=== PATIENT | male | born 1945 | race Caucasian/White ===

== ENCOUNTER 2017-12-04 15:12 | Emergency (ER) | payer OTHER ==
[~2017-12-04] VITALS: Ht 182.9 cm; Wt 77.1 kg
[~2017-12-04 15:12] MED LIST: ASCO500 PO; ATOR10 PO; Arthritis Pai42.5 GM TOP; B-1100 MG PO; BIOTENE1000 ML; BIOTENE1000 ML PO; BISA5EC PO; CAPSAICIN TOP; CHOL10002; CHOL10002 PO; CIPR500 PO; CYAN1000 PO; DEXT5ER PO; DULO30 PO; DULO60; DULO60 PO; FINA5 PO; FISH1000 PO; Fish Oil300 MG PO; GLIP5 PO; Glucose4 GM PO; HYDACE10B PO; IBUP400 PO; LISI20 PO; LORA1 PO; LORA2 PO; METF500C PO; METO25 PO; METO25ER PO; MORP15ER PO; MORP60ER PO; MULVITMIND PO; OLAN10 PO; PERIDEX15 ML PO; PREG50 PO; PYRI100 PO; SILD50TA; SILD50TA PO; SODIUM FLUORIDE; TAMS.4ER PO; TESTOSTERO200 MG/1 M IM; Viagra100 MG PO; XARELTO15 MG PO; Zyprexa10 MG PO
[2017-12-04 15:52] LABS: BASOPHILS ABSOLUTE AUTO 0.03 K/mm3 (0.00-0.23); BASOPHILS PERCENT AUTO 0 % (0-2); EOSINOPHILS ABSOLUTE AUTO 0.11 K/mm3 (0.00-0.68); EOSINOPHILS PERCENT AUTO 1 % (0-6); Hematocrit 39.2 % (37.0-53.0); Hemoglobin 13.5 g/dL (13.5-17.5); IMMATURE GRAN ABSOLUTE AUTO 0.02 K/mm3 (0.00-0.10); IMMATURE GRAN PERCENT AUTO 0 % (0-1); LYMPHOCYTES PERCENT AUTO 21 % (21-46); MONOCYTES PERCENT AUTO 9 % (4-13); Mean Corpuscular HGB 33.8 pg (26.0-34.0); Mean Corpuscular HGB Conc 34.4 g/dL (31.5-36.5); Mean Corpuscular Volume 98 fL (80-100); Mean Platelet Volume 11.1 fL (9.1-12.4); NEUTROPHILS ABSOLUTE AUTO 6.66 K/mm3 (1.96-9.15); NEUTROPHILS PERCENT AUTO 68 % (41-73); Platelet Count 223 K/mm3 (150-400); RDW Coefficient Variation 13.7 % (11.7-14.2); RDW Standard Deviation 49.3 fL (35.1-46.3); White Blood Cell Count 9.82 K/mm3 (4.00-11.30)
[2017-12-04 16:12] LABS: Alanine Aminotransfer (ALT/SGP 38 U/L (12-78); Albumin, Blood 3.3 g/dL (3.4-5.0); Albumin/Globulin Ratio 0.9 (0.8-1.8); Alk Phos 50 U/L (50-136); Anion Gap 10 mmol/L (6-16); Aspartate Aminotrans (AST/SGOT 24 U/L (12-37); Bilirubin, Total 0.4 mg/dL (0.1-1.0); Blood Urea Nitrogen 11 mg/dL (8-24); Bun/Creatinine Ratio 21.1 (12.0-20.0); CO2, Blood 22 mmol/L (21-32); Calcium, Blood 8.9 mg/dL (8.5-10.1); Chloride, Blood 110 mmol/L (98-108); Creatinine, Blood 0.52 mg/dL (0.60-1.20); Globulin, Blood 3.5 g/dL (2.2-4.0); Glomerular Filtration Rate >60 (60-); Glucose, Blood 149 mg/dL (70-99); Potassium, Blood 3.6 mmol/L (3.5-5.5); Sodium, Blood 142 mmol/L (136-145); Total Protein, Blood 6.8 g/dL (6.4-8.2); Troponin I <0.015 ng/mL (0.000-0.040)
== END 2017-12-04 19:22 | disposition home or self-care (01) ==
LOC: ER 15:12
PROVIDERS: Emergency Medicine
DX: S09.90XA Unspecified injury of head, initial encounter (principal); I10 Essential (primary) hypertension; E11.40 Type 2 diabetes mellitus with diabetic neuropathy, unspecified; F32.9 Major depressive disorder, single episode, unspecified; F41.9 Anxiety disorder, unspecified; F17.200 Nicotine dependence, unspecified, uncomplicated; Z88.8 Allergy status to other drugs, medicaments and biological substances; Z79.899 Other long term (current) drug therapy; Z79.84 Long term (current) use of oral hypoglycemic drugs; Z86.19 Personal history of other infectious and parasitic diseases; W18.30XA Fall on same level, unspecified, initial encounter
CPT/HCPCS: 70450; 72125; 80053; 81000; 82272; 84484; 85025; 93005; 93010; 99284; L0160

== ENCOUNTER 2020-01-31 21:02 | Observation (INO) | payer OTHER ==
[~2020-01-31] VITALS: Ht 182.9 cm; Wt 90.7 kg
[2020-01-31 22:00] LABS: U Amphetamine Screen Not Detected; U Barbituate Screen Not Detected; U Benzodiazapine Screen Not Detected; U Buprenorphine Screen Not Detected; U Cannabinoids Screen Not Detected; U Cocaine Screen Not Detected; U Methadone Screen Not Detected; U Methamphetamine Screen Not Detected; U Opiates Screen Not Detected; U Oxycodone Screen Not Detected; U Phencyclidine Screen Not Detected; U Propoxyphene Screen Not Detected
[2020-01-31 22:04] LABS: BASOPHILS ABSOLUTE AUTO 0.07 K/mm3 (0.00-0.23); BASOPHILS PERCENT AUTO 1 % (0-2); EOSINOPHILS ABSOLUTE AUTO 0.28 K/mm3 (0.00-0.68); EOSINOPHILS PERCENT AUTO 3 % (0-6); Hematocrit 43.6 % (37.0-53.0); Hemoglobin 14.5 g/dL (13.5-17.5); IMMATURE GRAN ABSOLUTE AUTO 0.03 K/mm3 (0.00-0.10); IMMATURE GRAN PERCENT AUTO 0 % (0-1); LYMPHOCYTES ABSOLUTE AUTO 3.58 K/mm3 (0.84-5.20); LYMPHOCYTES PERCENT AUTO 36 % (21-46); MONOCYTES ABSOLUTE AUTO 0.81 K/mm3 (0.16-1.47); MONOCYTES PERCENT AUTO 8 % (4-13); Mean Corpuscular HGB 32.7 pg (26.0-34.0); Mean Corpuscular HGB Conc 33.3 g/dL (31.5-36.5); Mean Corpuscular Volume 98 fL (80-100); Mean Platelet Volume 11.2 fL (9.1-12.4); NEUTROPHILS ABSOLUTE AUTO 5.09 K/mm3 (1.96-9.15); NEUTROPHILS PERCENT AUTO 52 % (41-73); Platelet Count 170 K/mm3 (150-400); RDW Coefficient Variation 13.9 % (11.7-14.2); RDW Standard Deviation 50.8 fL (35.1-46.3); Red Blood Cell Count 4.43 M/mm3 (4.30-5.90); White Blood Cell Count 9.86 K/mm3 (4.00-11.30)
[2020-01-31 22:19] LABS: Prothrombin Time Results 10.7 Sec (9.7-11.5)
[2020-01-31 22:29] LABS: Alanine Aminotransfer (ALT/SGP 86 U/L (12-78); Albumin, Blood 3.4 g/dL (3.4-5.0); Albumin/Globulin Ratio 0.9 (0.8-1.8); Alk Phos 57 U/L (50-136); Anion Gap 4 mmol/L (6-16); Aspartate Aminotrans (AST/SGOT 49 U/L (12-37); Bilirubin, Total 0.3 mg/dL (0.1-1.0); Blood Urea Nitrogen 10 mg/dL (8-24); Bun/Creatinine Ratio 11.3 (12.0-20.0); CO2, Blood 30 mmol/L (21-32); Calcium, Blood 8.8 mg/dL (8.5-10.1); Chloride, Blood 111 mmol/L (98-108); Creatinine, Blood 0.89 mg/dL (0.60-1.20); Ethanol (Alcohol), Blood, Med <3 mg/dL; Globulin, Blood 3.8 g/dL (2.2-4.0); Glomerular Filtration Rate >60 (60-); Glucose, Blood 81 mg/dL (70-99); Potassium, Blood 4.1 mmol/L (3.5-5.5); Sodium, Blood 145 mmol/L (136-145); Total Protein, Blood 7.2 g/dL (6.4-8.2)
[2020-01-31] MEDS ORDERED: NARCAN4 MG (23:36)
== END 2020-02-01 00:01 | disposition home or self-care (01) ==
LOC: ER 21:02 → ERHOLD 21:03
PROVIDERS: Emergency Medicine; ADMIT Internal Medicine
DX: G92 Toxic encephalopathy (principal); G89.4 Chronic pain syndrome; E86.0 Dehydration; R74.8 Abnormal levels of other serum enzymes; E11.40 Type 2 diabetes mellitus with diabetic neuropathy, unspecified; F32.9 Major depressive disorder, single episode, unspecified; T40.2X1A Poisoning by other opioids, accidental (unintentional), initial encounter; F43.10 Post-traumatic stress disorder, unspecified; G47.30 Sleep apnea, unspecified; E78.5 Hyperlipidemia, unspecified; D75.1 Secondary polycythemia; Z79.899 Other long term (current) drug therapy; Z86.69 Personal history of other diseases of the nervous system and sense organs; Z86.19 Personal history of other infectious and parasitic diseases; Z79.84 Long term (current) use of oral hypoglycemic drugs; Z88.8 Allergy status to other drugs, medicaments and biological substances; F17.210 Nicotine dependence, cigarettes, uncomplicated
CPT/HCPCS: 70450; 80053; 85025; 85610; 85730; 93005; 93010; 96374; 99285-25; A9270-GY; G0378; G0480; J2310; J7030

== ENCOUNTER 2020-12-22 14:12 | Emergency (ER) | payer OTHER ==
[~2020-12-22] VITALS: Ht 182.9 cm; Wt 90.7 kg
[~2020-12-22 14:12] MED LIST changes: +NARCAN4 MG
[2020-12-22 14:54] LABS: BASOPHILS ABSOLUTE AUTO 0.07 K/mm3 (0.00-0.23); BASOPHILS PERCENT AUTO 1 % (0-2); EOSINOPHILS PERCENT AUTO 2 % (0-6); Hematocrit 44.8 % (37.0-53.0); Hemoglobin 14.3 g/dL (13.5-17.5); IMMATURE GRAN ABSOLUTE AUTO 0.02 K/mm3 (0.00-0.10); IMMATURE GRAN PERCENT AUTO 0 % (0-1); LYMPHOCYTES ABSOLUTE AUTO 1.93 K/mm3 (0.84-5.20); LYMPHOCYTES PERCENT AUTO 23 % (21-46); MONOCYTES ABSOLUTE AUTO 1.08 K/mm3 (0.16-1.47); MONOCYTES PERCENT AUTO 13 % (4-13); Mean Corpuscular HGB 31.5 pg (26.0-34.0); Mean Corpuscular HGB Conc 31.9 g/dL (31.5-36.5); Mean Corpuscular Volume 99 fL (80-100); Mean Platelet Volume 11.8 fL (9.1-12.4); NEUTROPHILS ABSOLUTE AUTO 5.02 K/mm3 (1.96-9.15); NEUTROPHILS PERCENT AUTO 60 % (41-73); Platelet Count 168 K/mm3 (150-400); RDW Coefficient Variation 14.6 % (11.7-14.2); RDW Standard Deviation 53.2 fL (35.1-46.3); Red Blood Cell Count 4.54 M/mm3 (4.30-5.90); White Blood Cell Count 8.32 K/mm3 (4.00-11.30)
[2020-12-22 15:07] LABS: International Normalized Ratio 1.01; Prothrombin Time Results 10.8 Sec (9.7-11.5)
[2020-12-22 15:24] LABS: Alanine Aminotransfer (ALT/SGP 38 U/L (12-78); Albumin, Blood 3.5 g/dL (3.4-5.0); Albumin/Globulin Ratio 0.9 (0.8-1.8); Alk Phos 70 U/L (50-136); Anion Gap 5 mmol/L (6-16); Aspartate Aminotrans (AST/SGOT 18 U/L (12-37); Bilirubin, Total 0.5 mg/dL (0.1-1.0); Blood Urea Nitrogen 6 mg/dL (8-24); Bun/Creatinine Ratio 8.3 (12.0-20.0); CO2, Blood 28 mmol/L (21-32); Calcium, Blood 8.7 mg/dL (8.5-10.1); Chloride, Blood 109 mmol/L (98-108); Creatinine, Blood 0.72 mg/dL (0.60-1.20); Ethanol (Alcohol), Blood, Med <3 mg/dL; Globulin, Blood 4.1 g/dL (2.2-4.0); Glomerular Filtration Rate >60 (60-); Glucose, Blood 151 mg/dL (70-99); Potassium, Blood 3.6 mmol/L (3.5-5.5); Sodium, Blood 142 mmol/L (136-145); Total Protein, Blood 7.6 g/dL (6.4-8.2)
[2020-12-22] MEDS ORDERED: Vitamin B-121000 MCG PO (15:34)
[2020-12-22] MEDS ORDERED: BUSP10 PO (15:34)
[2020-12-22] MEDS ORDERED: FISH OIL 1,2001 EAC7 PO (15:34)
[2020-12-22] MEDS ORDERED: ACET325 PO (15:34)
[2020-12-22] MEDS ORDERED: ATOR20 PO (15:34)
[2020-12-22] MEDS ORDERED: METO25 PO (15:35)
[2020-12-22] MEDS ORDERED: MELA3 PO (15:35)
[2020-12-22] MEDS ORDERED: GLIP5 PO (15:35)
[2020-12-22] MEDS ORDERED: PREG25 PO (15:36)
[2020-12-22] MEDS ORDERED: OLAN5 PO (15:36)
[2020-12-22] MEDS ORDERED: SILD50TA PO (15:37)
[2020-12-22] MEDS ORDERED: TAMS.4ER PO (15:37)
[2020-12-22 17:03] LABS: Influenza A, PCR Negative (NEGATIVE); Influenza B, PCR Negative (NEGATIVE); Resp Syncytial Virus, PCR Negative (NEGATIVE); SARS-Cov-2 (COVID-19) PCR, MMC Negative (NEGATIVE)
== END 2020-12-22 17:49 | disposition home or self-care (01) ==
LOC: ER 14:12
PROVIDERS: Emergency Medicine
DX: R41.0 Disorientation, unspecified (principal); Z79.84 Long term (current) use of oral hypoglycemic drugs; Z79.899 Other long term (current) drug therapy; Z20.822 Contact with and (suspected) exposure to COVID-19
CPT/HCPCS: 0241U; 36415; 70450; 71045; 80053; 85025; 85610; 93005; 93010; 99285-25; G0480

== ENCOUNTER 2021-09-17 09:55 | Inpatient (IN) | payer OTHER ==
[~2021-09-17] VITALS: Ht 182.9 cm; Wt 74.7 kg
[~2021-09-17 09:55] MED LIST changes: +ACET325 PO; +FISH OIL 1,2001 EAC7 PO
[2021-09-17 10:32] LABS: BASOPHILS ABSOLUTE AUTO 0.09 K/mm3 (0.00-0.23); BASOPHILS PERCENT AUTO 1 % (0-2); EOSINOPHILS PERCENT AUTO 0 % (0-6); Hemoglobin 15.6 g/dL (13.5-17.5); IMMATURE GRAN ABSOLUTE AUTO 0.07 K/mm3 (0.00-0.10); IMMATURE GRAN PERCENT AUTO 0 % (0-1); LYMPHOCYTES ABSOLUTE AUTO 2.11 K/mm3 (0.84-5.20); LYMPHOCYTES PERCENT AUTO 12 % (21-46); MONOCYTES ABSOLUTE AUTO 1.63 K/mm3 (0.16-1.47); MONOCYTES PERCENT AUTO 10 % (4-13); Mean Corpuscular HGB 29.2 pg (26.0-34.0); Mean Corpuscular HGB Conc 32.5 g/dL (31.5-36.5); Mean Corpuscular Volume 90 fL (80-100); Mean Platelet Volume 11.4 fL (9.1-12.4); NEUTROPHILS ABSOLUTE AUTO 13.05 K/mm3 (1.96-9.15); NEUTROPHILS PERCENT AUTO 77 % (41-73); Platelet Count 144 K/mm3 (150-400); RDW Coefficient Variation 15.7 % (11.7-14.2); RDW Standard Deviation 50.8 fL (35.1-46.3); Red Blood Cell Count 5.34 M/mm3 (4.30-5.90); White Blood Cell Count 16.95 K/mm3 (4.00-11.30)
[2021-09-17 11:14] LABS: Alanine Aminotransfer (ALT/SGP 121 U/L (12-78); Albumin, Blood 3.5 g/dL (3.4-5.0); Albumin/Globulin Ratio 0.8 (0.8-1.8); Alk Phos 64 U/L (50-136); Anion Gap 7 mmol/L (6-16); Aspartate Aminotrans (AST/SGOT 158 U/L (12-37); Blood Urea Nitrogen 35 mg/dL (8-24); Bun/Creatinine Ratio 31.2 (12.0-20.0); CO2, Blood 22 mmol/L (21-32); Calcium, Blood 9.2 mg/dL (8.5-10.1); Chloride, Blood 130 mmol/L (98-108); Creatinine, Blood 1.12 mg/dL (0.60-1.20); Globulin, Blood 4.5 g/dL (2.2-4.0); Glomerular Filtration Rate >60 (60-); Glucose, Blood 248 mg/dL (70-99); Potassium, Blood 3.5 mmol/L (3.5-5.5); Sodium, Blood 159 mmol/L (136-145); Troponin I 0.029 ng/mL (0.000-0.040)
[2021-09-17 11:41] LABS: Source, Urine Catheter
[2021-09-17 11:53] LABS: Appearance, Urine Hazy (Clear); Bilirubin, Urine Neg (Neg); Blood, Urine 5+ (Neg); Color, Urine Amber (P-Yellow); Glucose Qualitative, Urine Neg (Neg); Ketones, Urine 1+ (Neg); Leukocyte Esterase, Urine 3+ (Neg); Nitrite, Urine Pos (Neg); Protein, Urine 3+ (Neg); Urobilinogen, Urine NORM (Normal)
[2021-09-17 12:28] LABS: White Blood Cells, Urine 25-50 /hpf (0-5)
[2021-09-17 12:29] LABS: Bacteria Many /hpf; Mucus Light (0-Heavy); Red Blood Cells, Urine 50-100 /hpf (0-2); Squamous Epithelial Cells Not Seen /hpf (Few)
[2021-09-17] MEDS ORDERED: OLANZAPINE20 M1 PO (14:22)
[2021-09-17] MEDS ORDERED: MELA3 PO (14:23)
[2021-09-17] MEDS ORDERED: Hydroxyzine HCl50 MG PO (14:23)
[2021-09-17] MEDS ORDERED: Vitamin B-121000 MCG PO (14:24)
[2021-09-17] MEDS ORDERED: METO25 PO (14:24)
[2021-09-17] MEDS ORDERED: GLIP5 PO (14:25)
[2021-09-17] MEDS ORDERED: ATOR10 PO (14:25)
[2021-09-17] MEDS ORDERED: TAMS.4ER PO (14:26)
[2021-09-17] MEDS ORDERED: BUSP10 PO (14:26)
[2021-09-17] MEDS ORDERED: PREG25 PO (14:44)
--- NOTE | 2021-09-17 17:52 | NUR ---
SHIFT SUMMARY PATIENT ADMITTED FROM ER AT 1530. PATIENT SETTLED INTO ROOM. PATIENT DENIES PAIN, NAUSEA, AND SHORTNESS OF BREATH. PATIENT IS A 1 PERSON ASSIST WITH A FWW. PATIENT HAS ATTENDS IN PLACE. STAFF HELPED PATIENT WITH EATING DINNER, PATIENT COUGHED AFTER DRINKING LIQUIDS. PATIENT IS A&O X2. PATIENT SLEPT SINCE BEING ON THE FLOOR. PATIENT DID WAKE UP ENOUGH FOR OT TO EVALUATE. PATIENT IS PLEASANT AND COOPERATIVE WITH CARE.
[2021-09-18 05:06] LABS: BASOPHILS ABSOLUTE AUTO 0.09 K/mm3 (0.00-0.23); BASOPHILS PERCENT AUTO 1 % (0-2); EOSINOPHILS ABSOLUTE AUTO 0.02 K/mm3 (0.00-0.68); EOSINOPHILS PERCENT AUTO 0 % (0-6); Hematocrit 40.3 % (37.0-53.0); Hemoglobin 13.1 g/dL (13.5-17.5); IMMATURE GRAN PERCENT AUTO 1 % (0-1); LYMPHOCYTES ABSOLUTE AUTO 2.83 K/mm3 (0.84-5.20); LYMPHOCYTES PERCENT AUTO 16 % (21-46); MONOCYTES ABSOLUTE AUTO 1.49 K/mm3 (0.16-1.47); MONOCYTES PERCENT AUTO 8 % (4-13); Mean Corpuscular HGB 29.4 pg (26.0-34.0); Mean Corpuscular HGB Conc 32.5 g/dL (31.5-36.5); Mean Corpuscular Volume 91 fL (80-100); Mean Platelet Volume 11.9 fL (9.1-12.4); NEUTROPHILS ABSOLUTE AUTO 13.52 K/mm3 (1.96-9.15); NEUTROPHILS PERCENT AUTO 75 % (41-73); Platelet Count 103 K/mm3 (150-400); RDW Coefficient Variation 15.6 % (11.7-14.2); RDW Standard Deviation 51.7 fL (35.1-46.3); Red Blood Cell Count 4.45 M/mm3 (4.30-5.90); White Blood Cell Count 18.05 K/mm3 (4.00-11.30)
[2021-09-18 05:26] LABS: Alanine Aminotransfer (ALT/SGP 127 U/L (12-78); Albumin, Blood 2.5 g/dL (3.4-5.0); Albumin/Globulin Ratio 0.7 (0.8-1.8); Alk Phos 58 U/L (50-136); Anion Gap 4 mmol/L (6-16); Aspartate Aminotrans (AST/SGOT 118 U/L (12-37); Bilirubin, Total 0.8 mg/dL (0.1-1.0); Blood Urea Nitrogen 26 mg/dL (8-24); Bun/Creatinine Ratio 38.5 (12.0-20.0); CO2, Blood 25 mmol/L (21-32); Calcium, Blood 8.3 mg/dL (8.5-10.1); Chloride, Blood 122 mmol/L (98-108); Creatinine, Blood 0.68 mg/dL (0.60-1.20); Globulin, Blood 3.7 g/dL (2.2-4.0); Glomerular Filtration Rate >60 (60-); Glucose, Blood 260 mg/dL (70-99); Magnesium, Blood 1.8 mg/dL (1.6-2.4); Potassium, Blood 3.6 mmol/L (3.5-5.5); Sodium, Blood 151 mmol/L (136-145); Total Protein, Blood 6.2 g/dL (6.4-8.2)
--- NOTE | 2021-09-18 05:31 | NUR ---
DOCTOR OF PHARMACY SUMMARY PATIENT HAD A CALM SHIFT. SHE LODGED NO COMPLAINTS OVER THE NIGHT, WILL CONTINUE TO MONITOR HER.
--- NOTE | 2021-09-18 16:39 | NUR ---
SHIFT SUMMARY PATIENT DENIES PAIN, NAUSEA, AND SHORTNESS OF BREATH. PATIENT IS A&O X3. PATIENT MUCH MORE ALERT THIS SHIFT. PATIENT ABLE TO TELL ME WHERE HE IS. PATIENT DOES HAVE A FLAT AFFECT AND IS SLOW TO RESPOND. PT WORKED WITH PATIENT. SPEECH DID AN EVAL AND RECOMMENDED THAT NECTAR THICK LIQUIDS BE GIVEN WITH MEALS AND MEDICATIONS. THIN LIQUIDS CAN BE GIVEN INBETWEEN. OT WORKED WITH PATIENT. PATIENT ABLE TO AMBULATE TO BATHROOM WITH WALKER WITH ONE PERSON ASSIST. PATIENT IS EATING AND DRINKING WELL, WITH SUPERVISION. PATIENT IS PLEASANT AND COOPERATIVE WITH CARE.
[2021-09-19] MEDS ORDERED: ACET325 PO (11:02)
[2021-09-19] MEDS ORDERED: CEFD300 PO (11:02)
[2021-09-19] MEDS ORDERED: ALBU90OI INH (11:03)
[2021-09-19] MEDS ORDERED: NICO21TP TOP (11:04)
[2021-09-19] MEDS ORDERED: ONDA4ODT MM (11:04)
[2021-09-19] MEDS ORDERED: LACT PO (11:08)
--- NOTE | 2021-09-19 15:25 | NUR ---
DISCHARGE DISCHARGE MEDICATIONS AND INSTRUCTIONS EXPLAINED TO PATIENT AND SPOUSE. THEY STATED UNDERSTANDING. PATIENT TO SCHEDULE [facility]LLOWUP WITH [facility]. IV REMOVED WITHOUT ISSUE. BELONGINGS WITH PATIENT. PATIENT TRANSFERED TO PRIVATE VEHICLE VIA WHEELCHAIR.
== END 2021-09-19 15:25 | disposition home health service (06) | DRG 871 ==
LOC: ER 09:55 → MEDS 13:33
PROVIDERS: Emergency Medicine; Nurse Practitioner Acute Care; ADMIT Internal Medicine
DX: A41.9 Sepsis, unspecified organism (principal); G92.9 Unspecified toxic encephalopathy; N39.0 Urinary tract infection, site not specified; E87.0 Hyperosmolality and hypernatremia; J44.9 Chronic obstructive pulmonary disease, unspecified; N40.0 Benign prostatic hyperplasia without lower urinary tract symptoms; E11.42 Type 2 diabetes mellitus with diabetic polyneuropathy; E86.0 Dehydration; F03.90 Unspecified dementia, unspecified severity, without behavioral disturbance, psychotic disturbance, mood disturbance, and anxiety; G47.33 Obstructive sleep apnea (adult) (pediatric); F43.10 Post-traumatic stress disorder, unspecified; M19.90 Unspecified osteoarthritis, unspecified site; R29.6 Repeated falls; I10 Essential (primary) hypertension; F41.9 Anxiety disorder, unspecified; G89.4 Chronic pain syndrome; E78.5 Hyperlipidemia, unspecified; F90.9 Attention-deficit hyperactivity disorder, unspecified type; F32.A Depression, unspecified; F17.210 Nicotine dependence, cigarettes, uncomplicated; Z86.711 Personal history of pulmonary embolism; Z79.84 Long term (current) use of oral hypoglycemic drugs; Z79.899 Other long term (current) drug therapy
CPT/HCPCS: 36415; 51701; 70450; 80053; 81001; 82947; 83605; 83735; 84484; 85025; 87040; 87077; 87086; 87186; 92610; 93005; 93010; 96365-59; 97162; 97166; 97530; 97535; 99285-25; A9270; J0696; J1650; J7030

== ENCOUNTER 2021-12-21 21:30 | Inpatient (IN) | payer OTHER ==
[~2021-12-21] VITALS: Ht 177.8 cm; Wt 73.2 kg
[~2021-12-21 21:30] MED LIST changes: +ALBU90OI INH; +BUSP10 PO; +CEFD300 PO; +Hydroxyzine HCl50 MG PO; +LACT PO; +MELA3 PO; +NICO21TP TOP; +OLANZAPINE20 M1 PO; +ONDA4ODT MM; +PREG25 PO; +Vitamin B-121000 MCG PO
[2021-12-21 22:21] LABS: Base Excess Venous -0.3 mmol/L; Bicarbonate Venous 22.2 mmol/L (24.0-30.0); PCO2 Venous 50.3 mmHg (38-42); PO2 Venous 30.7 mmHg (38-42); pH Blood Venous 7.32 (7.34-7.37)
[2021-12-21 22:32] LABS: BASOPHILS ABSOLUTE AUTO 0.03 K/mm3 (0.00-0.23); BASOPHILS PERCENT AUTO 0 % (0-2); EOSINOPHILS PERCENT AUTO 0 % (0-6); Hematocrit 52.4 % (37.0-53.0); Hemoglobin 17.4 g/dL (13.5-17.5); IMMATURE GRAN ABSOLUTE AUTO 0.16 K/mm3 (0.00-0.10); IMMATURE GRAN PERCENT AUTO 1 % (0-1); LYMPHOCYTES ABSOLUTE AUTO 1.16 K/mm3 (0.84-5.20); LYMPHOCYTES PERCENT AUTO 6 % (21-46); MONOCYTES ABSOLUTE AUTO 1.86 K/mm3 (0.16-1.47); MONOCYTES PERCENT AUTO 10 % (4-13); Mean Corpuscular HGB 30.4 pg (26.0-34.0); Mean Corpuscular HGB Conc 33.2 g/dL (31.5-36.5); Mean Corpuscular Volume 92 fL (80-100); Mean Platelet Volume 11.3 fL (9.1-12.4); NEUTROPHILS ABSOLUTE AUTO 15.33 K/mm3 (1.96-9.15); NEUTROPHILS PERCENT AUTO 83 % (41-73); Platelet Count 172 K/mm3 (150-400); RDW Coefficient Variation 14.2 % (11.7-14.2); RDW Standard Deviation 48.1 fL (35.1-46.3); Red Blood Cell Count 5.72 M/mm3 (4.30-5.90); White Blood Cell Count 18.54 K/mm3 (4.00-11.30)
[2021-12-21 23:02] LABS: Alanine Aminotransfer (ALT/SGP 41 U/L (12-78); Albumin, Blood 3.6 g/dL (3.4-5.0); Albumin/Globulin Ratio 0.8 (0.8-1.8); Alk Phos 76 U/L (50-136); Anion Gap 11 mmol/L (6-16); Aspartate Aminotrans (AST/SGOT 114 U/L (12-37); Bilirubin, Total 0.6 mg/dL (0.1-1.0); Blood Urea Nitrogen 20 mg/dL (8-24); Bun/Creatinine Ratio 15.3 (12.0-20.0); CO2, Blood 24 mmol/L (21-32); Calcium, Blood 9.2 mg/dL (8.5-10.1); Chloride, Blood 105 mmol/L (98-108); Creatinine, Blood 1.31 mg/dL (0.60-1.20); Ethanol (Alcohol), Blood, Med <3 mg/dL; Globulin, Blood 4.6 g/dL (2.2-4.0); Glomerular Filtration Rate 54 (60-); Glucose, Blood 248 mg/dL (70-99); Potassium, Blood 4.3 mmol/L (3.5-5.5); Sodium, Blood 140 mmol/L (136-145); Total Protein, Blood 8.2 g/dL (6.4-8.2); Troponin I <0.015 ng/mL (0.000-0.040)
[2021-12-21 23:58] LABS: Source, Urine Clean Catch
[2021-12-22 00:09] LABS: Bilirubin, Urine Neg (Neg); Blood, Urine 5+ (Neg); Glucose Qualitative, Urine Neg (Neg); Ketones, Urine 2+ (Neg); Leukocyte Esterase, Urine 3+ (Neg); Nitrite, Urine Neg (Neg); Protein, Urine 3+ (Neg); Specific Gravity, Urine 1.015 (1.003-1.022); Urobilinogen, Urine NORM (Normal)
[2021-12-22 00:19] LABS: Appearance, Urine Hazy (Clear); Color, Urine Yellow (P-Yellow)
[2021-12-22 00:20] LABS: Bacteria Many /hpf; Squamous Epithelial Cells Not Seen /hpf (Few); U Amphetamine Screen Not Detected; U Barbituate Screen Not Detected; U Benzodiazapine Screen Not Detected; U Buprenorphine Screen Not Detected; U Cannabinoids Screen Not Detected; U Cocaine Screen Not Detected; U Methadone Screen Not Detected; U Methamphetamine Screen Not Detected; U Opiates Screen Not Detected; U Oxycodone Screen Not Detected; U Phencyclidine Screen Not Detected; U Propoxyphene Screen Not Detected; White Blood Cells, Urine TNTC /hpf (0-5)
[2021-12-22 00:39] LABS: Influenza A, PCR NEGATIVE (NEGATIVE); Influenza B, PCR NEGATIVE (NEGATIVE); Resp Syncytial Virus, PCR NEGATIVE (NEGATIVE); SARS-Cov-2 (COVID-19) PCR, MMC NEGATIVE (NEGATIVE)
[2021-12-22 04:15] LABS: BASOPHILS ABSOLUTE AUTO 0.05 K/mm3 (0.00-0.23); BASOPHILS PERCENT AUTO 0 % (0-2); EOSINOPHILS PERCENT AUTO 0 % (0-6); Hematocrit 47.1 % (37.0-53.0); Hemoglobin 15.4 g/dL (13.5-17.5); IMMATURE GRAN ABSOLUTE AUTO 0.09 K/mm3 (0.00-0.10); IMMATURE GRAN PERCENT AUTO 1 % (0-1); LYMPHOCYTES ABSOLUTE AUTO 1.51 K/mm3 (0.84-5.20); LYMPHOCYTES PERCENT AUTO 9 % (21-46); MONOCYTES ABSOLUTE AUTO 2.38 K/mm3 (0.16-1.47); MONOCYTES PERCENT AUTO 14 % (4-13); Mean Corpuscular HGB 29.8 pg (26.0-34.0); Mean Corpuscular HGB Conc 32.7 g/dL (31.5-36.5); Mean Corpuscular Volume 91 fL (80-100); Mean Platelet Volume 11.4 fL (9.1-12.4); NEUTROPHILS PERCENT AUTO 77 % (41-73); Platelet Count 151 K/mm3 (150-400); RDW Coefficient Variation 14.3 % (11.7-14.2); RDW Standard Deviation 48.4 fL (35.1-46.3); Red Blood Cell Count 5.17 M/mm3 (4.30-5.90); White Blood Cell Count 17.23 K/mm3 (4.00-11.30)
[2021-12-22 04:42] LABS: Alanine Aminotransfer (ALT/SGP 44 U/L (12-78); Albumin, Blood 2.8 g/dL (3.4-5.0); Albumin/Globulin Ratio 0.8 (0.8-1.8); Alk Phos 63 U/L (50-136); Anion Gap 7 mmol/L (6-16); Aspartate Aminotrans (AST/SGOT 159 U/L (12-37); Bilirubin, Total 0.6 mg/dL (0.1-1.0); Blood Urea Nitrogen 18 mg/dL (8-24); Bun/Creatinine Ratio 19.4 (12.0-20.0); CO2, Blood 25 mmol/L (21-32); Calcium, Blood 8.8 mg/dL (8.5-10.1); Chloride, Blood 110 mmol/L (98-108); Creatinine, Blood 0.93 mg/dL (0.60-1.20); Globulin, Blood 3.7 g/dL (2.2-4.0); Glomerular Filtration Rate >60 (60-); Glucose, Blood 183 mg/dL (70-99); Potassium, Blood 4.2 mmol/L (3.5-5.5); Sodium, Blood 142 mmol/L (136-145); Total Protein, Blood 6.5 g/dL (6.4-8.2)
--- NOTE | 2021-12-22 05:25 | NUR ---
ADMIT/SUMMARY PT TO ROOM FROM ER. WHILE ROLLING PT YELLS "FUCK YOU" TO NURSE AND THIS HAS BEEN THE ONLY MEANINGFUL SPEECH HE HAS MADE WITH THIS RN. PT PRESENTS OBTUNDED AND SNORING NOW BUT DOES RESPOND TO TOUCH. 500ML BOLIUS INFUSED UPON [id number] AND THEN CONTINUOUS NS STARTED AT 100MLS/HR. PT'S JAMES WITH DARK TEA OUTPUT. WOUNDS NOTED TO R BARRIOS, LATISSIMUS, AND SACRUM, PICS IN CHART. MILD HTN NOTED, WILL MONITOR THIS. ADMISSION PAPERWORK COMPLETED OFF OF ADMISSION IN AUGUST. OTHERWISE, BED ALARM IN PLACE.
--- NOTE | 2021-12-22 09:00 | NUR ---
DR. NERI AT BEDSIDE. DISCUSSED POC. PATIENT WAKES TO VERBAL AND IS ABLE TO ANSWER QUESTIONS. ORIENTED EXCEPT TO PLACE. PATIENT REPORTS PTSD. DISCUSSED WOUNDS. NURSING STAFF HAS NOT TALKED TO HIS , I WILL TRY TO CALL HER THIS MORNING. GOING TO DO BEDSIDE SWALLOW EVAL. UNABLE TO FEEL L PEDAL PULSE, DR. NERI ORDERED TO FIND IT VIA DOPPLER.
--- NOTE | 2021-12-22 09:30 | NUR ---
DR. ERNANDEZ AT BEDSIDE. DISCUSSED POC. NOTIFIED HER OF WOUNDS AND PLAN FOR BEDSIDE SWALLOW EVAL.
[2021-12-22 09:51] LABS: Base Excess Venous -1.4 mmol/L; Bicarbonate Venous 23.4 mmol/L (24.0-30.0); PCO2 Venous 37.7 mmHg (38-42); PO2 Venous 63.3 mmHg (38-42)
--- NOTE | 2021-12-22 10:08 | NUR ---
CALLED DR. ERNANDEZ AND NOTIFIED HER PATIENT COUGHED AFTER A TEASPOON OF WATER. NPO. NOTIFIED HER PATIENT'S HEART RATE UP IN THE 1TEENS SOMETIMES TOUCHING 120'S. I ALSO FOUND THE PAIENT'S LEFT PEDAL PULSE VIA DOPPLER. ORDERS RECEIVED FOR SPEECH THERAPY AND SHE WILL REVIEW MEDS.
--- NOTE | 2021-12-22 10:15 | NUR ---
CALLED PATIENT'S ARIELA ON THE PHONE WITH PATIENT'S PERMISSION. ARIELA SAID THAT YESTERDAY "HE WAS SLEEPING ALL DAY. I TRIED TO WAKE HIM BUT HE KEPT SLEEPING." SHE WAS AT WORK AND HAD HER FAMILY CHECK ON HIM. SAID HE STARTED TO GET SICK ON FRIDAY BUT HE WAS SLEEPING ALL DAY ONLY YESTERDAY. SAID THAT HE USUALLY WALKS WITHOUT A WALKER. SAYS THAT HE STAYS AT HOME WATCHING TV "A LOT OF THE TIME". SHE HAS HER MOM WATCHING HER SON WHO SOMETIMES CHECKS ON THE PATIENT. SHE IS NOT SURE HOW HE GOT THE WOUNDS ON HIS BACK AND BUTTOCKS, SAYS THAT MAYBE HE FELL BUT SHE WAS NOT THERE. SAID SHE ASKED THE PATIENT HOW HE GOT THESE BUT HE SAID HE DIDN'T KNOW. SAID HE DOESN'T SWALLOW WELL AT HOME AND EATS REALLY SLOW. SHE WORKS AT THE [employer]. SAID THAT PATIENT'S PCP IS DARRELL MORALES.
--- NOTE | 2021-12-22 12:50 | NUR ---
CALLED DR. ERNANDEZ. NOTIFIED HER SPEECH THERAPY SAW PATIENT AND THAT THEY RECOMMENDED THAT HE REMAIN NPO. PATIENT'S LAST CBG WAS 190, OK TO GIVE 1 UNIT INSULIN PER SLIDING SCALE. UPDATED HER WITH ARIELA, PATIENT'S , SAID REGARDING PATIENT. NOTIFIED HER PATIENT'S SACRAL WOUND IS DARK WITH ESCHAR, CLEANED WOUND AND COVERED WITH ALLEVYN DRESSING. DR. ERNANDEZ PUT IN ORDER FOR INPATIENT WOUND CONSULT.
--- NOTE | 2021-12-22 18:50 | NUR ---
SHIFT SUMMARY: PATIENT WAKES TO VERBAL STIMULATION AND WILL STAY AWAKE IF YOU TALK TO HIM. HE STARTLES EASILY, REPORTS HX PTSD, SO IT IS BEST TO MAKE NOSE FAR AWAY FROM HIS BED TO WAKE HIM AND THEN APPROACH HIM. DISORIENTED TO PLACE/EVENT. REPORTS PAIN IN HIS R SHOULDER WHICH HE STATES IS CHRONIC. HE IS ABLE TO SLEEP. ON ROOM AIR. TELE SHOWS SINUS RHYTHM - SINUS TACH IN THE LOW 100'S. HEART RATE DOES GET UP TO 120'S WITH ACTIVITY LIKE ROLLING IN BED. SPEECH THERAPY SAYS STRICT NPO. PATIENT NOT GETTING ORAL METOPROLOL, AWARE. DRESSINGS PLACED TO MULTIPLE WOUNDS. INPATIENT WOUND CONSULT ORDERED. TURNING Q2H. PREVENTATIVE HEEL PROTECTORS PLACED. WILL CONT TO MONITOR AND REPORT TO ONCOMING RN.
--- NOTE | 2021-12-23 02:44 | NUR ---
SUMMARY OF CARE PT ALERT AND SLIGHTLY ORIENTED. FOLLOWING COMMANDS AND ABLE TO MAKE SOME APPROPRIATE CONVERSATION WITH THIS RN. VSS EXCEPT SOME MILD HTN, 160'S SBP. PT RECEIVING FLUIDS FOR SEPSIS AND, THUS, THIS RN HAS PERMISSIVELY ALLOWED THE MILD HTN. PT IN SR. ON RA. JAMES PATENT AND DRAINING. WOUNDS ALL DRESSED AND CLEAN. PT BEING TURNED HEAVILY Q2H. NS INFUSING PER EMAR. 0245 - REPORT GIVEN TO RM 330 RN. AIDS PACKING UP ROOM NOW. PT OUT OF UNIT @ 0255. BELONGINGS WITH PT.
[2021-12-23 05:30] LABS: Base Excess Venous 0.5 mmol/L; PCO2 Venous 37.5 mmHg (38-42); PO2 Venous 99.1 mmHg (38-42); pH Blood Venous 7.43 (7.34-7.37)
[2021-12-23 05:44] LABS: BASOPHILS ABSOLUTE AUTO 0.05 K/mm3 (0.00-0.23); BASOPHILS PERCENT AUTO 0 % (0-2); EOSINOPHILS PERCENT AUTO 1 % (0-6); Hematocrit 44.9 % (37.0-53.0); Hemoglobin 14.8 g/dL (13.5-17.5); IMMATURE GRAN ABSOLUTE AUTO 0.06 K/mm3 (0.00-0.10); IMMATURE GRAN PERCENT AUTO 1 % (0-1); LYMPHOCYTES ABSOLUTE AUTO 1.91 K/mm3 (0.84-5.20); LYMPHOCYTES PERCENT AUTO 16 % (21-46); MONOCYTES PERCENT AUTO 13 % (4-13); Mean Corpuscular HGB 30.1 pg (26.0-34.0); Mean Corpuscular Volume 91 fL (80-100); Mean Platelet Volume 11.9 fL (9.1-12.4); NEUTROPHILS ABSOLUTE AUTO 8.39 K/mm3 (1.96-9.15); NEUTROPHILS PERCENT AUTO 70 % (41-73); Platelet Count 123 K/mm3 (150-400); RDW Coefficient Variation 14.5 % (11.7-14.2); RDW Standard Deviation 48.7 fL (35.1-46.3); Red Blood Cell Count 4.92 M/mm3 (4.30-5.90); White Blood Cell Count 12.01 K/mm3 (4.00-11.30)
--- NOTE | 2021-12-23 06:31 | NUR ---
PT IS A TRANSFER FROM PCU. CAME IN WITH AMS, WAS SEPTIC AND HAS METABOLIC ENCEPH - ALL SECONDARY DUE TO UTI AND DEMENTIA. PATIENT IS ALERT, BUT HAS A FLAT AFFECT AND BARELY SPEAKS. HE HAS A JAMES FOR CHRONIC RETENTION, WHICH HE WILL MORE THAN LIKELY DC WITH WHEN THAT OCCURS. STRICT NPO PER SPEACH THERAPY HE FAILED SWALLOW TESTING. LACTIC IS DOWN FROM 5.7 TO 2.9 AT THIS TIME. HAS SKIN TEARS AND WOUNDS ALL OVER HIS BODY, WHICH ARE COVERED BY VARIOUS DRESSINGS. SKIN TEARS TO RIGHT BARRIOS, LEFT HAND AND RIGHT SHOULDER BLADE. PER REPORT, STAGE 3 ON BUTTOCKS WELL. PICTURES FOR ALL ARE IN HIS CHART. WOUNDER CARE AND PALLIATIVE CONSULTS ARE IN AT THIS TIME.
--- NOTE | 2021-12-23 17:38 | NUR ---
SHIFT SUMMARY PATIENT DENIES PAIN, NAUSEA, AND SHORTNESS OF BREATH. PATIENT IS ON BEDREST. PATIENT PULLED HIS IV OUT THIS MORNING. PATIENT HAD REFUSED TO LET US PLACE ANOTHER. PER DR. MARTINEZ, ESTEVAN TO GIVE PO ABX. IN AFTERNOON, WAS ABLE TO PLACE IV. FLUIDS RESTARTED. ABX ORDERED CHANGED BACK TO IV. JAMES IS PATENT AND DRAINING TO GRAVITY. PATIENT IS NPO.
[2021-12-24] MEDS ORDERED: SODIUM FLUORID100 ML DT (00:08)
--- NOTE | 2021-12-24 06:16 | NUR ---
PATIENT SLEPT MOST OF THE EVENING. WAS CURIOUS WHY HE WAS STILL NOT ABLE TO EAT OR DRINK - WE DISCUSSED WHY. I EXPLAINED THAT HE WILL HAVE ANOTHER SWALLOW EVEL TODAY PER PROGRESS NOTES. IF HE PASSES, DIET COULD CHANGE. ALSO EXPLAINED WHY HE NEEDS GLUCOSE CHECKS EVERY 6 HOURS. PATIENT HAD NO COMPLAINTS DURING SHIFT. NO CALLS FROM TELEMETRY. PATIENT RESTED IN BED WATCHING TV MOST OF THE SHIFT.
[2021-12-24 07:31] LABS: BASOPHILS ABSOLUTE AUTO 0.05 K/mm3 (0.00-0.23); BASOPHILS PERCENT AUTO 1 % (0-2); EOSINOPHILS ABSOLUTE AUTO 0.28 K/mm3 (0.00-0.68); EOSINOPHILS PERCENT AUTO 3 % (0-6); Hematocrit 40.3 % (37.0-53.0); Hemoglobin 13.2 g/dL (13.5-17.5); IMMATURE GRAN ABSOLUTE AUTO 0.05 K/mm3 (0.00-0.10); IMMATURE GRAN PERCENT AUTO 1 % (0-1); LYMPHOCYTES ABSOLUTE AUTO 2.03 K/mm3 (0.84-5.20); LYMPHOCYTES PERCENT AUTO 19 % (21-46); MONOCYTES ABSOLUTE AUTO 1.26 K/mm3 (0.16-1.47); MONOCYTES PERCENT AUTO 12 % (4-13); Mean Corpuscular HGB 29.8 pg (26.0-34.0); Mean Corpuscular HGB Conc 32.8 g/dL (31.5-36.5); Mean Corpuscular Volume 91 fL (80-100); Mean Platelet Volume 11.3 fL (9.1-12.4); NEUTROPHILS ABSOLUTE AUTO 7.18 K/mm3 (1.96-9.15); NEUTROPHILS PERCENT AUTO 66 % (41-73); Platelet Count 127 K/mm3 (150-400); RDW Coefficient Variation 14.1 % (11.7-14.2); Red Blood Cell Count 4.43 M/mm3 (4.30-5.90); White Blood Cell Count 10.85 K/mm3 (4.00-11.30)
[2021-12-24 07:49] LABS: Alanine Aminotransfer (ALT/SGP 38 U/L (12-78); Albumin/Globulin Ratio 0.6 (0.8-1.8); Alk Phos 53 U/L (50-136); Anion Gap 5 mmol/L (6-16); Aspartate Aminotrans (AST/SGOT 68 U/L (12-37); Bilirubin, Total 0.9 mg/dL (0.1-1.0); Blood Urea Nitrogen 8 mg/dL (8-24); Bun/Creatinine Ratio 15.8 (12.0-20.0); CO2, Blood 26 mmol/L (21-32); Calcium, Blood 7.8 mg/dL (8.5-10.1); Chloride, Blood 112 mmol/L (98-108); Creatinine, Blood 0.51 mg/dL (0.60-1.20); Globulin, Blood 3.5 g/dL (2.2-4.0); Glomerular Filtration Rate >60 (60-); Glucose, Blood 93 mg/dL (70-99); Potassium, Blood 3.2 mmol/L (3.5-5.5); Sodium, Blood 143 mmol/L (136-145); Total Protein, Blood 5.5 g/dL (6.4-8.2)
--- NOTE | 2021-12-24 16:33 | NUR ---
TRANSFER PATIENT TRANSFERRED TO ROOM 346. PATIENT SETTLED INTO ROOM. REPORT GIVEN TO RAMAN SUH. SHIFT SUMMARY BEFORE TRANSFER PATIENT DENIED PAIN, NAUSEA, AND SHORTNESS OF BREATH. PATIENT IS A 2 PERSON MAX TO TRANSFER. PATIENT IS NPO. DR. LARA NOTIFIED OF BLOOD SUGAR OF 84 THIS MORNING. NO NEW ORDERS. PATIENT FAILED 2ND BESIDE EVAL THIS MORNING WITH ST. BARRIUM SWALLOW ORDERED FOR TOMORROW. PATIENT WORKED WITH OT AND PT. PATIENT HAD AN UNWITNESSED FALL AT 1300. IRIS COMPLETE. POST FALL ASSESSMENT COMPLETE. CHARGE NURSE NOTIFIED. DR. LARA NOTIFIED. PATIENT ATTEMPTED TO GET OUT OF BED MULITPLE TIMES AFTER FALL. NEW ORDERS FOR BILAT SOFT WRIST RESTRAINTS. PATIENT VERY COMBATIVE, HITTING, KICKING, THREATENING STAFF. PATIENT PULLING AT JAMES AND IV. BOTH INTACT.
--- NOTE | 2021-12-24 16:46 | NUR ---
ATTEMPT TO CONTACT THIS NURSE ATTEMPTED TO CONTACT TWICE WITH NO ANSWER AFTER PATIENT FELL. WILL CONTINUE TO ATTEMPT TO CONTACT.
--- NOTE | 2021-12-24 18:38 | NUR ---
SHIFT SUMMARY PT TRANSFERRED FROM ROOM 330 FOR INCREASED SUPERVISION DUE TO FALLS AND IMPULSIVITY. PT WAS IN WRIST RESTRAINTS WHEN TRANSFERRED BUT THEY HAVE SINCE BEEN REMOVED BECAUSE THEY SEEMED TO BE MAKING THE PATIENT MORE AGITATED. PT IS CURRENTLY NPO DUE TO FAILING HIS SWALLOW EVAL. INGEUM SWALLOW TEST SCHEDULED FOR TOMORROW. PT IS CURRENTLY ON CAMERA TO MONITOR FOR FALLS. VSS. WILL REPORT TO CHRISTIAN CAMARGO.
--- NOTE | 2021-12-25 03:32 | NUR ---
Shift Summarry Receive patient this afternoon, calm with no complaint of pain or disconfort. Within 2 hours he became very agitated and wants to get out of bed. Patient is weak and unsteady. called and ordered restraint. Patient is now on vest restraint and side rails up X4. He is receiving N/S at 100 ML/HR. He is NPO, Waiting on the next Barium swallow eval for tomorrow. We will continue with monitoring patient for acute changes.
[2021-12-25 06:15] LABS: Alanine Aminotransfer (ALT/SGP 45 U/L (12-78); Albumin, Blood 2.1 g/dL (3.4-5.0); Albumin/Globulin Ratio 0.7 (0.8-1.8); Alk Phos 55 U/L (50-136); Anion Gap 5 mmol/L (6-16); Aspartate Aminotrans (AST/SGOT 93 U/L (12-37); Bilirubin, Total 0.9 mg/dL (0.1-1.0); Blood Urea Nitrogen 5 mg/dL (8-24); Bun/Creatinine Ratio 10.1 (12.0-20.0); CO2, Blood 26 mmol/L (21-32); Calcium, Blood 7.6 mg/dL (8.5-10.1); Chloride, Blood 112 mmol/L (98-108); Globulin, Blood 3.2 g/dL (2.2-4.0); Glomerular Filtration Rate >60 (60-); Glucose, Blood 102 mg/dL (70-99); Sodium, Blood 143 mmol/L (136-145); Total Protein, Blood 5.3 g/dL (6.4-8.2)
--- NOTE | 2021-12-25 17:50 | NUR ---
SHIFT SUMMARY PT A/O X2 AND REMAINS IN VEST RESTRAINT WHICH HE HAS TOLERATED WELL TODAY. PT HAD A BARRIUM SWALLOW STUDY AND UNFORTUNATELY FAILED. PEG TUBE PLACEMENT RECOMMENDED. PT IS TO REMAIN STRICT NPO. PT HAS BEEN UP TO THE CHAIR FOR THE MAJORITY OF THE SHIFT. VSS. WILL REPORT TO CHRISTIAN CAMARGO.
--- NOTE | 2021-12-26 04:42 | NUR ---
Shift summary Patient remain in vest restraint. He is NPO, Failled the swallow test yesterday. Pt is receiving N/S 100 ML/HR. His blood sugar checked at midnight was low 58. He received 25 ml dextrose which bring him to 94. He is refusing vital and medication at time. He called 911 stated that we keep him hostage. Not sleeping and using call light often. We will continue with monitoring patient.
[2021-12-26 09:02] LABS: BASOPHILS ABSOLUTE AUTO 0.06 K/mm3 (0.00-0.23); BASOPHILS PERCENT AUTO 1 % (0-2); EOSINOPHILS ABSOLUTE AUTO 0.14 K/mm3 (0.00-0.68); EOSINOPHILS PERCENT AUTO 1 % (0-6); Hemoglobin 12.2 g/dL (13.5-17.5); IMMATURE GRAN ABSOLUTE AUTO 0.07 K/mm3 (0.00-0.10); IMMATURE GRAN PERCENT AUTO 1 % (0-1); LYMPHOCYTES ABSOLUTE AUTO 1.62 K/mm3 (0.84-5.20); LYMPHOCYTES PERCENT AUTO 17 % (21-46); MONOCYTES PERCENT AUTO 13 % (4-13); Mean Corpuscular HGB 30.3 pg (26.0-34.0); Mean Corpuscular HGB Conc 33.9 g/dL (31.5-36.5); Mean Corpuscular Volume 90 fL (80-100); Mean Platelet Volume 11.1 fL (9.1-12.4); NEUTROPHILS ABSOLUTE AUTO 6.58 K/mm3 (1.96-9.15); NEUTROPHILS PERCENT AUTO 67 % (41-73); Platelet Count 175 K/mm3 (150-400); RDW Coefficient Variation 13.8 % (11.7-14.2); RDW Standard Deviation 45.4 fL (35.1-46.3); Red Blood Cell Count 4.02 M/mm3 (4.30-5.90); White Blood Cell Count 9.77 K/mm3 (4.00-11.30)
[2021-12-26 09:26] LABS: Alanine Aminotransfer (ALT/SGP 44 U/L (12-78); Albumin, Blood 2.2 g/dL (3.4-5.0); Albumin/Globulin Ratio 0.6 (0.8-1.8); Alk Phos 57 U/L (50-136); Anion Gap 11 mmol/L (6-16); Aspartate Aminotrans (AST/SGOT 85 U/L (12-37); Bilirubin, Total 0.8 mg/dL (0.1-1.0); Blood Urea Nitrogen 5 mg/dL (8-24); Bun/Creatinine Ratio 9.9 (12.0-20.0); CO2, Blood 21 mmol/L (21-32); Calcium, Blood 7.9 mg/dL (8.5-10.1); Chloride, Blood 109 mmol/L (98-108); Creatinine, Blood 0.51 mg/dL (0.60-1.20); Globulin, Blood 3.6 g/dL (2.2-4.0); Glomerular Filtration Rate >60 (60-); Glucose, Blood 84 mg/dL (70-99); Potassium, Blood 3.1 mmol/L (3.5-5.5); Sodium, Blood 141 mmol/L (136-145); Total Protein, Blood 5.8 g/dL (6.4-8.2)
--- NOTE | 2021-12-26 18:07 | NUR ---
PATIENT A/O TO SELF AND FAMILY ONLY. IRRITABLE AT TIMES, BUT EASILY CALMS WITH CONCERSATION. RESTRAINTS D/C'D TODAY AND BED ALARM AND CHAIR ALARM UTILIZED. REMAINS NPO, D51/2NS WITH POTASSIUM STARTED. Q6 HOUR BLOOD SUGARS STABLE. SKIN TEAR TO R HAND AND L SCAPULA, MEPILEX DRESSING REMAIN C/D/I. PRESSURE SORE TO COCCYX WITH MEPILEX DRESSING IN PLACE. VOIDING IN URINAL. PATIENT STATED MULTIPLE TIMES TODAY THAT HE DOES NOT WANT A PEG TUBE PLACED, HOWEVER REMAINS VERY CONFUSED AND DOES NOT SEEM TO UNDERSTAND HIS SITUATION. VSS, ON RA. NO ACUTE CHANGES THIS SHIFT.
[2021-12-27 06:09] LABS: Anion Gap 10 mmol/L (6-16); Blood Urea Nitrogen 3 mg/dL (8-24); Bun/Creatinine Ratio 5.3 (12.0-20.0); CO2, Blood 23 mmol/L (21-32); Calcium, Blood 8.3 mg/dL (8.5-10.1); Chloride, Blood 109 mmol/L (98-108); Creatinine, Blood 0.57 mg/dL (0.60-1.20); Glomerular Filtration Rate >60 (60-); Glucose, Blood 115 mg/dL (70-99); Potassium, Blood 3.3 mmol/L (3.5-5.5); Sodium, Blood 142 mmol/L (136-145)
--- NOTE | 2021-12-27 06:35 | NUR ---
Pt is alert and oriented to self and only. He is forgetful and insist in walking to the bathroom by himself. pt is redirectable though. pt had a hard time urinating. minimal urine output. pt is NPO. during the night patient was agitated and RN attempts to place him back to bilateral upper wrist restraints but pt is not compliant. RN explained to the pt about safety and risk for fall. pt agreeable to stay in bed and for bed alarm to be on if he does not get restrained. pt is now resting on his bed sleeping in the lowest position. call light within reach. bed alarm on. pt is more agreeable and not as anxious and agitated in the AM. spoke with his Izzy in the phone. pt was pleasant with her.
--- NOTE | 2021-12-27 10:08 | NUR ---
SPOKE WITH DR. ERNANDEZ ABOUT CONCERNS ABOUT FEEDING PATIENT A MECHANICAL SOFT DIET WHEN PATIENT FAILED SWALLOW EVALUATION. SPOKE WITH PALLIATIVE CARE ABOUT PATIENT BEING AN ASPIRATION RISK AND FULL CODE STATUS. DR. ERNANDEZ WANTS TO GO AHEAD AND FEED HIM A SOFT DIET SO ORDERS WERE PLACED. ATTEMPTED TO CONTACT SPEECH THERAPIST FOR DIET RECOMMENDATIONS.
--- NOTE | 2021-12-27 14:41 | NUR ---
Met with pt today, and he is able to clearly tell me he does not want a feeding tube. He v/u that he will likely choke, and it can cause pneumonia and or eventually . He also states, "What kind of a life is it with no food?" He does remember much of this hospitalization, and is able to recognize that he thought he was at home and didn't understand why people were in his home, when in reality he was in the hospital and the "intruders" were nurses. However, he also continues to have delusions when sundowning, and cannot be convinced otherwise in the moment. He is alert, oriented to person, place during the day. I have spoken to him and his at length, and does agree he can be on comfort care with no more discussion of tube feeding, as this is against pt's wishes. She also states she knows she cannot care for him in his current state, as someone must watch over him during the night, and both she and her parents all work during the day, along with having a very young son. She recognizes that she simply cannot care for both and work at this time. She is agreeable to pt being placed for now. Contacted [facility], Contract Sheltered Workshop Supervisor who will [facility] regarding [facility]. The patient is 100% service connected.
--- NOTE | 2021-12-27 17:03 | NUR ---
PATIENT TRANSITIONED TO COMFORT CARE THIS SHIFT. DENIES ANY PAIN. UP WITH FWW AND SBA. A/OX3, CONFUSED ABOUT SITUATION AT TIMES. COOPERATIVE WITH CARE. EXCORIATION TO BUTTOCKS, AREA CLEANSED AND BARRIER CREAM APPLIED. POWERGLIDE TO SHANA WNL AND SL. FALL PRECAUTIONS IN PLACE. COOPERATIVE WITH CARE.
[2021-12-28 07:37] LABS: Anion Gap 6 mmol/L (6-16); Blood Urea Nitrogen 5 mg/dL (8-24); Bun/Creatinine Ratio 8.2 (12.0-20.0); CO2, Blood 28 mmol/L (21-32); Calcium, Blood 8.8 mg/dL (8.5-10.1); Chloride, Blood 109 mmol/L (98-108); Creatinine, Blood 0.61 mg/dL (0.60-1.20); Glomerular Filtration Rate >60 (60-); Glucose, Blood 161 mg/dL (70-99); Potassium, Blood 3.4 mmol/L (3.5-5.5); Sodium, Blood 143 mmol/L (136-145)
--- NOTE | 2021-12-28 13:02 | NUR ---
Pt is currently on Comfort Care. He is less anxious at night at this point, and eating almost 100% of meals. He remains able to make his wants and needs known.
--- NOTE | 2021-12-28 18:31 | NUR ---
PATIENT HAS BEEN IN BED MOST OF THE DAY, SITTING UP ON THE EDGE OF THE BED TO USE THE URINAL. HE REPORTS NO PAIN. HE TOOK MEDICATIONS WHOLE AND REQUESTED PUDDING TO EAT. PATIENT HAS NOT HAD COMPLAINTS OF PAIN. HE HAS A A DRESSING IN PLACE ON THE RIGHT ANKLE.
--- NOTE | 2021-12-29 06:41 | NUR ---
Pt is alert but confused. He is forgetful. He doesnt call when trying to get out of bed, impulsive. He talked to his on the phone about going home and became agitated. Gave him medication to calm him down. med is effective. pt is now sleeping with bed alarm on. call light within reach. patient uses walker. he can ambulate but unsteady.
--- NOTE | 2021-12-29 10:43 | NUR ---
PT UP IN THE RECLINER, WILL WORK WITH PHYSICAL THERAPY SHORTLY DENIES ANY APIN AT THIS TIME WILL CTM.
--- NOTE | 2021-12-29 11:16 | NUR ---
PT C/O PAIN IN THE LEFT HIP MEDICATED WITH PRN OXY. WILL CTM.
--- NOTE | 2021-12-29 13:00 | NUR ---
PT DENIES PAIN AT THIS TIME WILL CTM.
--- NOTE | 2021-12-29 17:13 | NUR ---
pt stable and comfortable.
--- NOTE | 2021-12-29 18:45 | NUR ---
SHIFT SUMMARY- PT A&O X2. 1PA WITH TRANSFERS AND AMBULATION. PT STATED HE FELT DIZZY AFTER A BM TODAY AND HIS LEGS BECAME WEAK WHILE AMBULATING TO THE BED, PER REPORT FROM THE HELMET BINDER HE DID NOT FALL ONLY BECAUSE STAFF HAD A HAND ON HIM AT THE TIME HIS LEGS GOT WOBBLY. PT DID HAVE A BM TODAY. PT IS ON COMFORT CARE AND IS AWARE SPEECH THERAPY RECOMENDED HE NOT TAKE ANYTHING BY MOUTH HE IS AT GREAT RISK FOR SILENT ASPIRATION. PT C/O -07/03 PAIN IN HIS LEFT HIP EARLIER TODAY AND WAS MEDICATED ONCE WITH 5MG OF LIQUID OXY. PT STATED TH EPAIN WAS GONE AFTER THE MEDICINE AND WANTED TO BE LEFT ALONE TO TAKE A NAP. PT IN BED CALL LIGHT IN REACH, NO S&S OF DISTRESS NOTED AT THIS TIME. WILL CTM AND PASS ON TO NIGHT RN IN REPORT.
--- NOTE | 2021-12-30 05:33 | NUR ---
Pt is aox1 to self and can recognize his . complains of right hip pain, PRN pain medication given. pt states effectiveness. pt is ambulatory with walker and one person assist. he is impulsive when getting out bed. call light within reach. bed alarm on.
--- NOTE | 2021-12-30 09:25 | NUR ---
PT DENIES ANY PAIN AT THIS TIME. APPEARS COMFORTABLE. WILL CTM.
--- NOTE | 2021-12-30 11:25 | NUR ---
PT ASSISTED BACK TO BED, DENIES ANY DISCOMFORT APPEARS SLEEPY BUT COMFORTABLE AT THIS TIME WILL CTM.
--- NOTE | 2021-12-30 18:38 | NUR ---
SHIFT SUMMARY- PT ALERT AND ORIENTED TO SELF. PT VERY IMPULSIVE AND UNSTEADY 1P SBA FOR TRANSFERS AND TO USE THE URINAL WHILE STANDING. THE PT FREQUENTLY SPILLS THE URINAL WHEN HE USES IT, STAFF SHOULD BE AWARE TO WATCH FOR A SINGLE SOILED LINNEN, GOWN BUT NOT BLANKET, SHEET BUT NOT GOWN, FRANKI BUT NOT BLANKET OR GOWN ETC. PT IS HAVING THE SECOND FULL LINNEN CHANGE OF THE DAY DONE JUST PRIOR TO SHIFT CHANGE. PT WILL BE ASSISTED TO BED AFTER THE LINNEN CHANGE. PT HAS DENIED ANY PAIN TODAY. HE IS CONFUSED, BUT REDIRECTABLE. PT HAS BEEN PLEASENT T/O THE SHIFT. WILL CTM AND PASS ON TO NIGHT RN IN BEDSIDE REPORT.
--- NOTE | 2021-12-31 05:14 | NUR ---
Pt is confuse but more pleasant tonight. He is able to wait in bed before getting up when the bed alarm goes off. Snack given. Night medications given. No complains of pain. No signs of distress. Bed alarm on. Call light within re.
--- NOTE | 2021-12-31 10:58 | NUR ---
Received referral from nurse care support representative ([facility]) on 12/31/2021. Patient is to discharge 12/31/2021 with orders for home health and elected [facility]. Met with patient to further discuss the above. Patient is agreeable to the above. Discussed homebound status definition with patient. Patient verbalized understanding. Discussed what home health is vs what it is not (in home caregivers/housekeeping). Patient verbalized understanding. Discussed the next steps in the process of an initial assessment to determine frequency of visits. Again patient verbalized understanding. Offered a chance for patient to ask questions regarding the above of which there were none. At this time patient has no discharge orders entered. Will continue to monitor and follow for discharge. April Marcelo Referral Liaison
[2021-12-31] MEDS ORDERED: METO50 PO (13:14)
[2021-12-31] MEDS ORDERED: TRANSDERM-SCOP1 EAC1 TD (13:15)
[2021-12-31] MEDS ORDERED: FLOMAX0.4 MG PO (13:17)
[2021-12-31] MEDS ORDERED: VISBIOME 112.51 EACH PO (13:21)
--- NOTE | 2021-12-31 14:00 | NUR ---
DISCHARGE NOTE PATENT WAS DISCHARGED WITH [facility] VIA WHEELCHAIR. HOME HEALTH WILL BE FOLLOWING UP WITH PT. VSS. NOTHING FURTHER TO REPORT.
--- NOTE | 2021-12-31 17:10 | NUR ---
Patient now has discharge orders entered. Gathered all supporting documentation for referral (face sheet, face to face, med list, H&P, and most recent PT assessment) and sent to [facility] for review. No further interventions required. April Marcelo Referral Liaison
== END 2021-12-31 13:51 | disposition home health service (06) | DRG 871 ==
LOC: ER 21:30 → PCU 12-22 02:45 → MEDS 12-22 02:53 → PCU 12-22 03:00 → MEDS 12-23 02:58 → ENPENDDIS 12-31 12:41 → MEDS 12-31 13:51
PROVIDERS: Emergency Medicine; Family Medicine; Student in an Organized Health Care Education/Training Program; ADMIT Internal Medicine
DX: A41.51 Sepsis due to Escherichia coli [E. coli] (principal); G92.8 Other toxic encephalopathy; E87.2 Acidosis; N39.0 Urinary tract infection, site not specified; N17.9 Acute kidney failure, unspecified; Z66 Do not resuscitate; Z51.5 Encounter for palliative care; Z78.1 Physical restraint status; Z20.822 Contact with and (suspected) exposure to COVID-19; E11.40 Type 2 diabetes mellitus with diabetic neuropathy, unspecified; G89.4 Chronic pain syndrome; F03.90 Unspecified dementia, unspecified severity, without behavioral disturbance, psychotic disturbance, mood disturbance, and anxiety; R65.20 Severe sepsis without septic shock; G47.30 Sleep apnea, unspecified; M19.90 Unspecified osteoarthritis, unspecified site; E55.9 Vitamin D deficiency, unspecified; I10 Essential (primary) hypertension; E78.5 Hyperlipidemia, unspecified; E87.6 Hypokalemia; E11.649 Type 2 diabetes mellitus with hypoglycemia without coma; F17.200 Nicotine dependence, unspecified, uncomplicated; F43.10 Post-traumatic stress disorder, unspecified; F32.A Depression, unspecified; F41.9 Anxiety disorder, unspecified; Z86.718 Personal history of other venous thrombosis and embolism; Z99.89 Dependence on other enabling machines and devices; Z88.6 Allergy status to analgesic agent; Z88.8 Allergy status to other drugs, medicaments and biological substances; Z79.84 Long term (current) use of oral hypoglycemic drugs; Z79.899 Other long term (current) drug therapy
CPT/HCPCS: 0241U; 36415; 51702; 51798; 70450; 71045; 74177; 74230; 80048; 80053; 81001; 82140; 82803; 82947; 83605; 83880; 84443; 84484; 85025; 87040; 87077; 87086; 87186; 92526; 92610; 92611; 93005; 93010; 96361; 96374; 97110; 97110-CQ; 97116-CQ; 97162; 97166; 97530; 97535; 99285-25; A9270; C1751; G0480; J0696; J1650; J7030; J7040; J7050; Q9967

== ENCOUNTER 2022-01-02 14:32 | Observation (INO) | payer OTHER ==
[~2022-01-02] VITALS: Ht 182.9 cm; Wt 76.3 kg
[~2022-01-02 14:32] MED LIST changes: +FLOMAX0.4 MG PO; +METO50 PO; +SODIUM FLUORID100 ML DT; +TRANSDERM-SCOP1 EAC1 TD; +VISBIOME 112.51 EACH PO
[2022-01-02 15:01] LABS: BASOPHILS ABSOLUTE AUTO 0.06 K/mm3 (0.00-0.23); BASOPHILS PERCENT AUTO 0 % (0-2); EOSINOPHILS ABSOLUTE AUTO 0.08 K/mm3 (0.00-0.68); EOSINOPHILS PERCENT AUTO 1 % (0-6); Hematocrit 38.5 % (37.0-53.0); Hemoglobin 12.8 g/dL (13.5-17.5); IMMATURE GRAN ABSOLUTE AUTO 0.09 K/mm3 (0.00-0.10); IMMATURE GRAN PERCENT AUTO 1 % (0-1); LYMPHOCYTES ABSOLUTE AUTO 2.14 K/mm3 (0.84-5.20); LYMPHOCYTES PERCENT AUTO 14 % (21-46); MONOCYTES ABSOLUTE AUTO 1.65 K/mm3 (0.16-1.47); MONOCYTES PERCENT AUTO 11 % (4-13); Mean Corpuscular HGB 30.3 pg (26.0-34.0); Mean Corpuscular HGB Conc 33.2 g/dL (31.5-36.5); Mean Corpuscular Volume 91 fL (80-100); Mean Platelet Volume 10.6 fL (9.1-12.4); NEUTROPHILS ABSOLUTE AUTO 11.63 K/mm3 (1.96-9.15); NEUTROPHILS PERCENT AUTO 74 % (41-73); Platelet Count 291 K/mm3 (150-400); RDW Coefficient Variation 15.1 % (11.7-14.2); RDW Standard Deviation 49.1 fL (35.1-46.3); Red Blood Cell Count 4.22 M/mm3 (4.30-5.90); White Blood Cell Count 15.65 K/mm3 (4.00-11.30)
[2022-01-02 15:12] LABS: Alanine Aminotransfer (ALT/SGP 38 U/L (12-78); Albumin, Blood 2.6 g/dL (3.4-5.0); Albumin/Globulin Ratio 0.7 (0.8-1.8); Alk Phos 63 U/L (50-136); Anion Gap 4 mmol/L (6-16); Aspartate Aminotrans (AST/SGOT 25 U/L (12-37); Bilirubin, Total 0.4 mg/dL (0.1-1.0); Blood Urea Nitrogen 8 mg/dL (8-24); Bun/Creatinine Ratio 11.5 (12.0-20.0); CO2, Blood 29 mmol/L (21-32); Calcium, Blood 8.6 mg/dL (8.5-10.1); Chloride, Blood 107 mmol/L (98-108); Creatinine, Blood 0.69 mg/dL (0.60-1.20); Globulin, Blood 3.9 g/dL (2.2-4.0); Glomerular Filtration Rate >60 (60-); Glucose, Blood 156 mg/dL (70-99); Potassium, Blood 3.7 mmol/L (3.5-5.5); Sodium, Blood 140 mmol/L (136-145); Total Protein, Blood 6.5 g/dL (6.4-8.2)
[2022-01-02 16:09] LABS: Source, Urine Straight Cath
[2022-01-02 16:23] LABS: Appearance, Urine Clear (Clear); Bilirubin, Urine Neg (Neg); Blood, Urine 3+ (Neg); Color, Urine Yellow (P-Yellow); Glucose Qualitative, Urine Neg (Neg); Ketones, Urine Neg (Neg); Leukocyte Esterase, Urine Neg (Neg); Nitrite, Urine Neg (Neg); Protein, Urine Neg (Neg); Urobilinogen, Urine NORM (Normal)
[2022-01-02 17:16] LABS: Bacteria Mod /hpf; Squamous Epithelial Cells Rare /hpf (Few)
[2022-01-02 17:29] LABS: Base Excess Venous 4.9 mmol/L; Bicarbonate Venous 28.5 mmol/L (24.0-30.0); PCO2 Venous 40.5 mmHg (38-42); pH Blood Venous 7.46 (7.34-7.37)
[2022-01-02 20:51] LABS: U Amphetamine Screen Not Detected; U Barbituate Screen Not Detected; U Benzodiazapine Screen Not Detected; U Buprenorphine Screen Not Detected; U Cannabinoids Screen Not Detected; U Cocaine Screen Not Detected; U Methadone Screen Not Detected; U Methamphetamine Screen Not Detected; U Opiates Screen Not Detected; U Oxycodone Screen Not Detected; U Phencyclidine Screen Not Detected; U Propoxyphene Screen Not Detected
[2022-01-03 04:45] LABS: BASOPHILS ABSOLUTE AUTO 0.07 K/mm3 (0.00-0.23); BASOPHILS PERCENT AUTO 1 % (0-2); EOSINOPHILS ABSOLUTE AUTO 0.28 K/mm3 (0.00-0.68); EOSINOPHILS PERCENT AUTO 3 % (0-6); Hematocrit 38.8 % (37.0-53.0); Hemoglobin 12.2 g/dL (13.5-17.5); IMMATURE GRAN ABSOLUTE AUTO 0.08 K/mm3 (0.00-0.10); IMMATURE GRAN PERCENT AUTO 1 % (0-1); LYMPHOCYTES ABSOLUTE AUTO 2.14 K/mm3 (0.84-5.20); LYMPHOCYTES PERCENT AUTO 22 % (21-46); MONOCYTES ABSOLUTE AUTO 1.12 K/mm3 (0.16-1.47); MONOCYTES PERCENT AUTO 11 % (4-13); Mean Corpuscular HGB 29.5 pg (26.0-34.0); Mean Corpuscular HGB Conc 31.4 g/dL (31.5-36.5); Mean Corpuscular Volume 94 fL (80-100); Mean Platelet Volume 11.4 fL (9.1-12.4); NEUTROPHILS ABSOLUTE AUTO 6.23 K/mm3 (1.96-9.15); NEUTROPHILS PERCENT AUTO 63 % (41-73); Platelet Count 283 K/mm3 (150-400); RDW Coefficient Variation 15.4 % (11.7-14.2); RDW Standard Deviation 52.1 fL (35.1-46.3); Red Blood Cell Count 4.13 M/mm3 (4.30-5.90); White Blood Cell Count 9.92 K/mm3 (4.00-11.30)
[2022-01-03 04:46] LABS: Alanine Aminotransfer (ALT/SGP 32 U/L (12-78); Albumin, Blood 2.3 g/dL (3.4-5.0); Albumin/Globulin Ratio 0.6 (0.8-1.8); Alk Phos 57 U/L (50-136); Anion Gap 3 mmol/L (6-16); Aspartate Aminotrans (AST/SGOT 24 U/L (12-37); Bilirubin, Total 0.7 mg/dL (0.1-1.0); Blood Urea Nitrogen 6 mg/dL (8-24); Bun/Creatinine Ratio 9.2 (12.0-20.0); CO2, Blood 30 mmol/L (21-32); Calcium, Blood 8.3 mg/dL (8.5-10.1); Chloride, Blood 111 mmol/L (98-108); Creatinine, Blood 0.65 mg/dL (0.60-1.20); Globulin, Blood 3.7 g/dL (2.2-4.0); Glomerular Filtration Rate >60 (60-); Glucose, Blood 121 mg/dL (70-99); Sodium, Blood 144 mmol/L (136-145)
--- NOTE | 2022-01-03 05:54 | NUR ---
SHIFT SUMMARY PT TO UNIT FROM E. ALERT, ORIENTED BUT NOT ALWAYS APPROPRIATE WITH ANSWERS. MAKES OFFHAND COMMENTS THAT DO NOT MATCH SITUATION. PT ARRIVES TO UNIT WITH NS @125, THIS ORDER TO FINISH WITH 2ND LITER. PT IN SINUS, MILDLY HYPERTENSIVE ON ADMISSION BUT HAS RESOLVED. PT ON RA, SPO2 >94%. PT CONTINENT CURRENTLY OF BOWELS. PT ARRIVES WITH JAMES IN PLACE DRAINING CLEAR YELLOW URINE. MULTIPLE WOUNDS NOTED TO PATIENTS HANDS,R SHIFT, LEFT FOOT, SACRUM, WELL VARIOS ECCHYMOSIS AND SCABBING. PT HAS CONTINUALLY REFUSED ORAL CARE. PT WANTING TO GO HOME BUT IS CONTENT WITH STAYING FOR THE TIME BEING. POST ADMIT, PT RESTING IN ROOM. NO CHANGES WITH VITALS. NS STILL INFUSING. PT REFUSING SOME ASPECTS OF CARE SUCH ORAL CARE BUT IS OTHERWISE COOPERATIVE. BED ALARM IN PLACE. BED IN LOW POSITION.
--- NOTE | 2022-01-03 16:53 | NUR ---
END OF SHIFT SUMMARY: PATIENT HAS BEEN SWITCHED TO MEDICAL STATUS NO TELE. STILL NPO, PALLITIVE CARE ON BOARD, PATIENT IS ALERT AND ORIENTED BETWEEN 3-4 DEPENDING ON HOW AND WHAT YOU ASK THE PATIENT, PATIENT HAS BEEN PLEASANT WITH THIS WIND UP OPERATOR, HOWEVER, CAN BE GRUMPY AT TIMES. PATIENT ENDORSES WANTING TO EAT. PATIENT SR TO ST 90-100. DENIES CHEST PAIN, 1L OF SALINE CONCLUDED ON MY SHIFT RECIEVED 1 L ON PREVIOUS SHIFT. LAST CBG 95, SIMULATION ENGINEER AWARE. IF CONTINUING TO DECLINE AND PATIENT NPO HYPOGLYCEMIA ORDERS WILL BE NEEDED. PATIENT DENIES PAIN, REPOSITIONED SELF AND I ENSURED Q2 MOVEMENTS, JAMES DRAINING TO GRAVITY. AFEBRILE. PATIENT REFUSED ORAL CARE, EDUCATION GIVEN ON IMPORTANCE OF ORAL CARE, PATIENT AWARE AND UNDERSTOOD STILL DENIES. PATIENT ON RA SPO2 GREATER THAN 95%. WILL CONTINUE TO MONITOR
--- NOTE | 2022-01-03 18:41 | NUR ---
Spoke to pt and his about comfort care and hospice. Pt is going to discharge on hospice, we just aren't sure if he will be going home, or to the [facility]. Will request Estephania, Sales Account Associate speak to pt's in the am to discuss benefits. Dr. Rios gave VO to change pt's status to comfort care.
--- NOTE | 2022-01-04 14:22 | NUR ---
Spoke to both pt and his today, pt continues to state, "I want to go home". He is alert and oriented today, as his biggest issue is in the evening with ing. He denies pain or SOB, and he appears to be eating without difficulty. Pt's Izzy continues working multimedia technician and caring for their 1.5 year old son with help from her parents. She has made it clear to the hospitalist that she cannot quit work, and cannot provide necessary care for the patient when she is working, and although her elderly parents are able to care for the young child, they are unable to provide the needed care for a full grown adult as well, especially when he wanders. This is the 's position. Fortunately, pt is a , and has been submitted to: [facility], [facility] and [facility] Denise with hospice care. I have not discussed this with the patient, and not planning to do so. Care Coordinators to follow up on discharge planning.
--- NOTE | 2022-01-04 18:30 | NUR ---
PT RESTED QUIETLY IN BED MOST OF THE DAY, DENIED PAIN OR ANY NEEDS. PT WILL BE TRANSPORTED HOME TONIGHT AT APROX 7PM WITH HOSPICE SERVICES TO BE ARRANGED ON FRIDAY. PT VERBALIZES UNDERSTANDING OF THIS PLAN AND CARE MANAGEMENT RN HAS BEEN IN CONTACT WITH HIS . IV AND JAMES CATHETER REMOVED WNL. DISCHARGE PAPERWORK WILL BE SENT HOME. ALL PT BELONGINGS WILL BE SENT WITH PT.
--- NOTE | 2022-01-04 19:39 | NUR ---
PT WENT HOME VIA GURNEY WITH TRANSPORT. PT DID NOT HAVE ANY BELONGINGS. DC FOLDER HANDED TO TRANSPORT BUT PT GRABBED IT.
== END 2022-01-04 19:35 | disposition home or self-care (01) ==
LOC: ER 14:32 → PCU 14:33 → ERHOLD 14:33 → PCU 21:41
PROVIDERS: Emergency Medicine; Student in an Organized Health Care Education/Training Program; ADMIT Hospitalist
DX: G92.8 Other toxic encephalopathy (principal); E86.0 Dehydration; E11.40 Type 2 diabetes mellitus with diabetic neuropathy, unspecified; I10 Essential (primary) hypertension; E78.00 Pure hypercholesterolemia, unspecified; F03.90 Unspecified dementia, unspecified severity, without behavioral disturbance, psychotic disturbance, mood disturbance, and anxiety; F17.200 Nicotine dependence, unspecified, uncomplicated; N40.0 Benign prostatic hyperplasia without lower urinary tract symptoms; G47.33 Obstructive sleep apnea (adult) (pediatric); D72.829 Elevated white blood cell count, unspecified; Z66 Do not resuscitate; Z88.8 Allergy status to other drugs, medicaments and biological substances; Z88.5 Allergy status to narcotic agent; Z79.84 Long term (current) use of oral hypoglycemic drugs; Z86.711 Personal history of pulmonary embolism; Z87.440 Personal history of urinary (tract) infections
CPT/HCPCS: 36415; 51702; 51798; 71045; 80053; 81001; 82803; 82947; 83605; 85025; 87086; 96365-59; 96366-59; 96367; 96367-59; 96372; 96375; 97116; 97162; 99285-25; A9270; G0378; J0456; J0692; J1650; J3370; J7030; J7050

== ENCOUNTER 2023-10-22 14:49 | Emergency (ER) | payer OTHER ==
[~2023-10-22] VITALS: Ht 182.9 cm; Wt 78.0 kg
[2023-10-22 15:15] LABS: BASOPHILS ABSOLUTE AUTO 0.05 K/mm3 (0.00-0.23); BASOPHILS PERCENT AUTO 1 % (0-2); EOSINOPHILS ABSOLUTE AUTO 0.27 K/mm3 (0.00-0.68); EOSINOPHILS PERCENT AUTO 4 % (0-6); Hematocrit 41.4 % (37.0-53.0); Hemoglobin 13.9 g/dL (13.5-17.5); IMMATURE GRAN ABSOLUTE AUTO 0.03 K/mm3 (0.00-0.10); IMMATURE GRAN PERCENT AUTO 0 % (0-1); LYMPHOCYTES ABSOLUTE AUTO 1.83 K/mm3 (0.84-5.20); LYMPHOCYTES PERCENT AUTO 24 % (21-46); MONOCYTES ABSOLUTE AUTO 0.66 K/mm3 (0.16-1.47); MONOCYTES PERCENT AUTO 9 % (4-13); Mean Corpuscular HGB Conc 33.6 g/dL (31.5-36.5); Mean Corpuscular Volume 95 fL (80-100); Mean Platelet Volume 12.1 fL (9.1-12.4); NEUTROPHILS ABSOLUTE AUTO 4.96 K/mm3 (1.96-9.15); NEUTROPHILS PERCENT AUTO 64 % (41-73); Platelet Count 164 K/mm3 (150-400); RDW Coefficient Variation 15.2 % (11.7-14.2); RDW Standard Deviation 53.2 fL (35.1-46.3); Red Blood Cell Count 4.35 M/mm3 (4.30-5.90)
[2023-10-22 15:30] VITALS: BP 167/78
[2023-10-22 16:49] LABS: Albumin, Blood 3.3 g/dL (3.4-5.0); Albumin/Globulin Ratio 0.8 (0.8-1.8); Bilirubin, Total 0.6 mg/dL (0.1-1.0); Bun/Creatinine Ratio 17.8 (12.0-20.0); Calcium, Blood 8.4 mg/dL (8.5-10.1); Creatinine, Blood 0.56 mg/dL (0.60-1.20); Potassium, Blood 3.6 mmol/L (3.5-5.5); Total Protein, Blood 7.3 g/dL (6.4-8.2)
[2023-10-22] MEDS ORDERED: BENADRYL25 MG PO (16:53)
== END 2023-10-22 17:20 | disposition home or self-care (01) ==
LOC: ER 14:49
PROVIDERS: Emergency Medicine
DX: G47.00 Insomnia, unspecified (principal); G47.30 Sleep apnea, unspecified; F03.90 Unspecified dementia, unspecified severity, without behavioral disturbance, psychotic disturbance, mood disturbance, and anxiety; E11.9 Type 2 diabetes mellitus without complications; I10 Essential (primary) hypertension; F17.210 Nicotine dependence, cigarettes, uncomplicated; Z88.5 Allergy status to narcotic agent; Z88.8 Allergy status to other drugs, medicaments and biological substances; Z79.899 Other long term (current) drug therapy
CPT/HCPCS: 80053; 85025; 99283

== ENCOUNTER 2024-11-29 18:12 | Inpatient (IN) | payer OTHER ==
[~2024-11-29] VITALS: Ht 182.9 cm; Wt 73.5 kg
[~2024-11-29 18:12] MED LIST changes: +ALFU10 PO; +BENADRYL25 MG PO; +CEPH500 PO; +ESCI10 PO; +HYDHCL25 PO; +LOPE2C PO; +MULVITA PO; +QUET300 PO
[2024-11-29] MEDS ORDERED: Lactated Ringer's 1,000 ML IV SCH ×2 (19:30→23:00)
[2024-11-29 19:37] LABS: Hematocrit 31.1 % (37.0-53.0); Hemoglobin 10.4 g/dL (13.5-17.5); Mean Corpuscular HGB 29.7 pg (26.0-34.0); Mean Corpuscular HGB Conc 33.4 g/dL (31.5-36.5); Mean Corpuscular Volume 89 fL (80-100); Mean Platelet Volume 10.4 fL (9.1-12.4); Platelet Count 469 K/mm3 (150-400); RDW Coefficient Variation 15.4 % (11.7-14.2); RDW Standard Deviation 48.8 fL (35.1-46.3); White Blood Cell Count 23.45 K/mm3 (4.00-11.30)
[2024-11-29 19:48] LABS: Albumin, Blood 1.4 g/dL (3.4-5.0); Albumin/Globulin Ratio 0.2 (0.8-1.8); Bilirubin, Direct 0.2 mg/dL (0.0-0.3); Bilirubin, Indirect 0.3 mg/dL (0.1-0.7); Bilirubin, Total 0.5 mg/dL (0.1-1.0); Creatinine, Blood 0.43 mg/dL (0.60-1.20); Globulin, Blood 6.5 g/dL (2.2-4.0); Magnesium, Blood 1.4 mg/dL (1.6-2.4); Phosphorus, Blood 2.3 mg/dL (2.5-4.9); Potassium, Blood 3.4 mmol/L (3.5-5.5); Total Protein, Blood 7.9 g/dL (6.4-8.2)
[2024-11-29 20:10] LABS: BAND PERCENT MAN 5 % (0-8); BASOPHILS PERCENT MAN 0 % (0-2); EOSINOPHILS PERCENT MAN 0 % (0-6); LYMPHOCYTES PERCENT MAN 3 % (21-46); MONOCYTES ABSOLUTE MAN 1.17 K/mm3 (0.16-1.47); MONOCYTES PERCENT MAN 5 % (4-13); NEUTROPHILS ABSOLUTE MAN 21.57 K/mm3 (1.96-9.15); SEG NEUTROPHILS PERCENT MAN 87 % (41-73); TOTAL CELLS COUNTED 100
[2024-11-29 20:36] LABS: CORONAVIRUS COVID-19 AG Negative (NEGATIVE); INFLUENZA A AG Negative (NEGATIVE); INFLUENZA B AG Negative (NEGATIVE)
[2024-11-29 20:42] LABS: International Normalized Ratio 1.22; Prothrombin Time Results 12.9 Sec (9.7-11.5)
[2024-11-29 20:43] LABS: Source, Urine Voided
[2024-11-29 20:45] LABS: Appearance, Urine Hazy (Clear); Bilirubin, Urine Neg (Neg); Blood, Urine 2+ (Neg); Color, Urine Yellow (P-Yellow); Glucose Qualitative, Urine 4+ (Neg); Ketones, Urine 2+ (Neg); Leukocyte Esterase, Urine 3+ (Neg); Nitrite, Urine Pos (Neg); Protein, Urine 2+ (Neg); Specific Gravity, Urine 1.015 (1.003-1.022); Urobilinogen, Urine 1+ (Normal)
[2024-11-29 20:52] LABS: White Blood Cells, Urine 25-50 /hpf (0-5)
[2024-11-29 20:53] LABS: Bacteria Many /hpf; Red Blood Cells, Urine 0-2 /hpf (0-2); Squamous Epithelial Cells Few /hpf (Few)
[2024-11-29] MEDS ORDERED: CefTRIAXone Sodium 1,000 MG in NS 50 ML IV ONE (20:55)
[2024-11-29] MEDS ORDERED: FLU VACC TS2024-25(6MOS UP)/PF 45 MCG/0.5 ML SYRINGE IM ONE (22:40)
[2024-11-29] MEDS ORDERED: Ipratropium/Albuterol SulF 2.5-0.5MG/3 ML Amp INH SCH (22:50)
[2024-11-29] MEDS ORDERED: Azithromycin 500 MG in NS 250 ML IV ONE (22:55)
[2024-11-29] MEDS ORDERED: Mag Sulfate 1 GM/D5% 100ML 100 ML IV STA (22:55)
[2024-11-29] MEDS ORDERED: Lactobacil 2-S.Thermo-Bifido 1 1 Cap PO SCH (23:00)
[2024-11-29] MEDS ORDERED: PredniSONE 20 MG Tab PO SCH (23:00)
[2024-11-29] MEDS ORDERED: Potassium Phosphate Dibasic 30 MM in Dextrose 5% 500 ML IV ONE (23:30)
[2024-11-30 05:10] LABS: Hematocrit 31.4 % (37.0-53.0); Hemoglobin 10.4 g/dL (13.5-17.5); Mean Corpuscular HGB 29.6 pg (26.0-34.0); Mean Corpuscular HGB Conc 33.1 g/dL (31.5-36.5); Mean Corpuscular Volume 90 fL (80-100); Mean Platelet Volume 10.5 fL (9.1-12.4); Platelet Count 456 K/mm3 (150-400); RDW Coefficient Variation 15.3 % (11.7-14.2); Red Blood Cell Count 3.51 M/mm3 (4.30-5.90); White Blood Cell Count 25.36 K/mm3 (4.00-11.30)
[2024-11-30 05:40] LABS: Bun/Creatinine Ratio 31.5 (12.0-20.0); Calcium, Blood 8.4 mg/dL (8.5-10.1); Creatinine, Blood 0.35 mg/dL (0.60-1.20); Potassium, Blood 4.2 mmol/L (3.5-5.5)
[2024-11-30] MEDS ORDERED: Insulin Human Lispro 100 Units/ML 3ML Syringe SC SCH (07:30)
[2024-11-30 08:55] VITALS: BP 149/89
[2024-11-30] MEDS ORDERED: Insulin Glargine-Yfgn 100 Unit/mL 3 ML SYR SC SCH (09:00)
[2024-11-30] MEDS ORDERED: Enoxaparin 40 MG/0.4 ML SYR SC SCH (09:00)
--- NOTE | 2024-11-30 09:09 | NUR ---
ADMISSION NOTE: PATIENT ARRIVED ON GURNEY FROM ER TO ROOM. PATIENT A/O X 1, JAMES IN PLACE WITH NO NOTED URINE IN BAG. PATIENT HAD NOTED BRUSING ON ARMS, LEGS AND LEFT SIDE FROM FALL 3 DAYS AGO AT HOME. PATIENT HAD NOTED PRESSURE AREA STAGE 1 BLANCHABLE TO TOUCH, MEPILEX APPLIED TO COCCYX AREA. PATIENT HAS SCABS ON LEFT ARM WHICH PATIENT IS PICKING AT. PATIENT PULLED OUT LEFT IV IN ER AND NOT ONLY HAS RIGHT IV IN RIGHT ARM. PATIENT HAS OXYGEN 4L N/C, PATIENT BASELINE RA. PATIENT IS INCONTIENT AND HAS BRIEF IN PLACE. PATIENT HAS CALL LIGHT AT SIDE AND BED ALARM ON
[2024-11-30] MEDS ORDERED: MELATONIN5 M1 PO (09:57)
[2024-11-30] MEDS ORDERED: QUET300 PO (09:59)
[2024-11-30] MEDS ORDERED: ASPI81CH PO (10:01)
[2024-11-30] MEDS ORDERED: ATOR40TA PO (10:02)
[2024-11-30] MEDS ORDERED: ENSURE PLUS237 ML PO (10:03)
--- NOTE | 2024-11-30 11:53 | NUR ---
PATIENT'S WORKS NOC SHIFT AT THE [place] AND MISSED WORK LAST NIGHT DUE TO BEING IN THE ED WITH PATIENT. ASKING IF PROVIDER WOULD PROVIDE A WORK RELEASE NOTE.
[2024-11-30 16:18] VITALS: BP 146/92
[2024-11-30] MEDS ORDERED: OLANZapine 10 MG Vial IM PRN (17:00)
[2024-11-30] MEDS ORDERED: BusPIRone HCl 10 MG Tab PO PRN (17:05)
--- NOTE | 2024-11-30 17:15 | NUR ---
CONTACTED DR NELSON REGARDING ORAL MEDS AND APIRATION. PER DR NELSON WILL CHANGE IV MEDS DUE ASPIRATION RISK.
--- NOTE | 2024-11-30 17:40 | NUR ---
PATIENT A/O X1, PATIENT WAS EVALUATED BY SPEECH AND WAS NOTED TO HAVE SEVERE ASPIRATION AND WAS PLACED NPO. PATIENT HAS IV IN RIGHT HAND WITH LR INFUSION AT 125/HR. PATIENT HAS BEEN TRYING TO GET OUT OF BED AND CHAIR AND HAS TO BE REDIRECTED DUE TO FALL RISK. PATIENT BECAME AGITATED AND STATED HE WANTED TO GET UP, DR NELSON CONTACTED AND ADVIED OF PATIENT TRING TO GET UP. PATIENT GIVE IM ZYPREXA 5MG TO ASSIST. PATIENT WAS AT BEDSIDE FOR A MOMENT HOWEVER WENT HOME WITH HER SON TO RETURN TOMORROW. PATIENT WAS GIVEN CALL LIGHT HOWEVER UNABLE TO USE CALL LIGHT HE CANNOT REMEMBER HOW TO USE CALL BUTTON OR WHAT IT IS FOR. PATIENT BED ALARM PLACED AND HAS CHAIR ALARM PLACED WHILE SITTING UP IN CHAIR.
[2024-11-30] MEDS ORDERED: Azithromycin 250 MG in NS 250 ML IV SCH (18:00)
[2024-11-30] MEDS ORDERED: Azithromycin 250 MG Tab PO SCH (18:00)
[2024-11-30 20:55] VITALS: BP 119/61
[2024-11-30] MEDS ORDERED: Atorvastatin 40 MG Tab PO SCH (21:00)
[2024-11-30] MEDS ORDERED: Melatonin 5 MG Tablet PO SCH (21:00)
[2024-11-30] MEDS ORDERED: CefTRIAXone Sodium 1,000 MG in NS 100 ML IV SCH (21:00)
[2024-11-30] MEDS ORDERED: Pregabalin 50 MG Capsule PO SCH (21:00)
[2024-11-30] MEDS ORDERED: QUEtiapine Fumarate 300 MG Tab PO SCH (21:00)
[2024-11-30] MEDS ORDERED: Famotidine 20 MG Tab PO SCH (21:00)
[2024-11-30] MEDS ORDERED: NS 250 ML IV PRN (21:30)
[2024-12-01] MEDS ORDERED: Insulin Glargine-Yfgn 100 Unit/mL 3 ML SYR SC ONE (01:00)
[2024-12-01] MEDS ORDERED: MethylPREDNISolone Sod Succ 125 MG Vial IV SCH ×2 (01:00→13:35)
[2024-12-01 03:57] VITALS: BP 125/78
[2024-12-01 06:06] LABS: BASOPHILS ABSOLUTE AUTO 0.03 K/mm3 (0.00-0.23); BASOPHILS PERCENT AUTO 0 % (0-2); EOSINOPHILS PERCENT AUTO 0 % (0-6); Hematocrit 31.4 % (37.0-53.0); Hemoglobin 10.3 g/dL (13.5-17.5); IMMATURE GRAN ABSOLUTE AUTO 0.17 K/mm3 (0.00-0.10); IMMATURE GRAN PERCENT AUTO 1 % (0-1); LYMPHOCYTES ABSOLUTE AUTO 0.49 K/mm3 (0.84-5.20); LYMPHOCYTES PERCENT AUTO 3 % (21-46); MONOCYTES ABSOLUTE AUTO 0.25 K/mm3 (0.16-1.47); MONOCYTES PERCENT AUTO 1 % (4-13); Mean Corpuscular HGB 29.3 pg (26.0-34.0); Mean Corpuscular HGB Conc 32.8 g/dL (31.5-36.5); Mean Corpuscular Volume 89 fL (80-100); Mean Platelet Volume 10.5 fL (9.1-12.4); NEUTROPHILS ABSOLUTE AUTO 16.71 K/mm3 (1.96-9.15); NEUTROPHILS PERCENT AUTO 95 % (41-73); Platelet Count 457 K/mm3 (150-400); RDW Coefficient Variation 15.7 % (11.7-14.2); RDW Standard Deviation 49.8 fL (35.1-46.3); Red Blood Cell Count 3.52 M/mm3 (4.30-5.90); White Blood Cell Count 17.65 K/mm3 (4.00-11.30)
--- NOTE | 2024-12-01 06:26 | NUR ---
Shift Summary Pt lethargic and somnolent t/o the night. No attempts to get out of bed, no agitated behavior or speech. When pt was awake he was AOx2, forgetful of where he was or why he was here but I was easily able to orient him and he verbalized understanding. He was cooperative with care. His BG was elevated at the start of shift, I called the hospitalist who ordered 10 units long acting and 1 dose now of fast acting per pt's current sliding scale. Hospitalist also switched his steriod to IV with the first dose at 0100 due to pt being NPO for aspiration risk. Pt finished his bag of LR and is no longer rcving IV fluids. Smith in place draining bruno urine.
[2024-12-01 06:53] LABS: Albumin, Blood 1.3 g/dL (3.4-5.0); Albumin/Globulin Ratio 0.2 (0.8-1.8); Bilirubin, Total 0.4 mg/dL (0.1-1.0); Bun/Creatinine Ratio 29.5 (12.0-20.0); Calcium, Blood 8.8 mg/dL (8.5-10.1); Creatinine, Blood 0.44 mg/dL (0.60-1.20); Globulin, Blood 6.1 g/dL (2.2-4.0); Total Protein, Blood 7.4 g/dL (6.4-8.2)
[2024-12-01 07:32] VITALS: BP 142/99
[2024-12-01] MEDS ORDERED: PredniSONE 20 MG Tab PO SCH (09:00)
[2024-12-01] MEDS ORDERED: Insulin Glargine-Yfgn 100 Unit/mL 3 ML SYR SC SCH ×3 (09:00→21:00)
[2024-12-01] MEDS ORDERED: Citalopram Hydrobromide 20 MG Tab PO SCH (09:00)
[2024-12-01] MEDS ORDERED: Aspirin 81 MG Chew PO SCH (09:00)
[2024-12-01] MEDS ORDERED: Finasteride 5 MG Tab PO SCH (09:00)
[2024-12-01] MEDS ORDERED: Tamsulosin HCl 0.4 MG Cap PO SCH (09:00)
[2024-12-01] MEDS ORDERED: Insulin Human Lispro 100 Units/ML 3ML Syringe SC SCH (11:30)
--- NOTE | 2024-12-01 12:47 | NUR ---
CONTACTED DR KAREN LEZAMA BLOOD SUGAR 425 NEW ORDERS TO BE GIVEN ON EMAR
[2024-12-01] MEDS ORDERED: NS 1,000 ML IV SCH (12:55)
[2024-12-01] MEDS ORDERED: Insulin Regular 100 Unit/ML 1ML Dose IV ONE (13:00)
[2024-12-01] MEDS ORDERED: Insulin Human Lispro 100 Units/ML 3ML Syringe SC ONE (13:30)
--- NOTE | 2024-12-01 14:02 | NUR ---
PATIENT HAS BEEN UP IN CHAIR WITH ONE ASSIST. PATIENT HAS PRESSURE SORE ON HIS COCCYX STAGE ONE AND DR NELSON IS AWARE OF WOUND, WOUND CARE CONSISTS OF MEPILEX TO BOTTOM WITH SURVILLANCE. ONE AREA IS BLANCHABLE THE OTHER IS RED WITH NO NOTED OPENING.
--- NOTE | 2024-12-01 14:19 | NUR ---
CONTACTED DR JONES FOR BS 321 [facility] IS DOWN FROM 425. BS TO BE RECHECKED IN HOUR
[2024-12-01 15:29] VITALS: BP 125/65
--- NOTE | 2024-12-01 18:34 | NUR ---
PATIENT A/O X 1-2. PATIENTS BLOOD SUGAR WAS NOTED TO BE HIGH AND WAS GIVEN INSULIN COVERAGE TO HELP DECREASE LEVELS. LAST BS 273 AND WAS GIVEN INSULIN COVERAGE. PATIENT JAMES WAS DISCONTINUED AND BRIEF PLACED ON PATIENT. PATIENT HAS BEEN UP IN CHAIR WITH CHAIR ALARM FOR PART OF THE DAY. SURGERY WAS CONSULTED FOR POSSIBLE PEG TUBE PLACEMENT AND DR ARZATE TO DISCUSS WITH POSSIBLE DOBHOFF TOMORROW. PATIENT BECAME AGITATED AROUND 2PM AND WAS GIVEN 5MG OF ZYPREXA IM. PATIENT HAS BEEN COMFORTABLY RESTING SINCE ZYPREXA ADMINSTRATION. PATIENT FAMILY AT PATIENT BEDSIDE. IV INFILTRATED AND POWERGLIDE TO BE PLACED. PATIENT HAS BED ALARM ON AND ADVISED FAMILY TO CONTACT THIS NURSE FOR ANY ISSUES
[2024-12-01] MEDS ORDERED: Haloperidol Lactate Inj. 5 MG/ML Injection IV PRN (22:00)
[2024-12-01] MEDS ORDERED: OLANZapine 10 MG Vial IM ONE (22:00)
[2024-12-01] MEDS ORDERED: LORazepam 2 MG/ML 1ML Injection IV ONE (22:00)
[2024-12-01] MEDS ORDERED: LORazepam 2 MG/ML 1ML Injection IV PRN (22:00)
[2024-12-02 04:59] VITALS: BP 136/81
[2024-12-02 06:37] LABS: BASOPHILS ABSOLUTE AUTO 0.01 K/mm3 (0.00-0.23); BASOPHILS PERCENT AUTO 0 % (0-2); EOSINOPHILS PERCENT AUTO 0 % (0-6); Hematocrit 26.8 % (37.0-53.0); Hemoglobin 8.6 g/dL (13.5-17.5); IMMATURE GRAN ABSOLUTE AUTO 0.11 K/mm3 (0.00-0.10); IMMATURE GRAN PERCENT AUTO 1 % (0-1); LYMPHOCYTES ABSOLUTE AUTO 1.31 K/mm3 (0.84-5.20); LYMPHOCYTES PERCENT AUTO 11 % (21-46); MONOCYTES ABSOLUTE AUTO 0.68 K/mm3 (0.16-1.47); MONOCYTES PERCENT AUTO 6 % (4-13); Mean Corpuscular HGB 29.3 pg (26.0-34.0); Mean Corpuscular HGB Conc 32.1 g/dL (31.5-36.5); Mean Corpuscular Volume 91 fL (80-100); NEUTROPHILS ABSOLUTE AUTO 10.27 K/mm3 (1.96-9.15); NEUTROPHILS PERCENT AUTO 83 % (41-73); Platelet Count 434 K/mm3 (150-400); RDW Coefficient Variation 15.9 % (11.7-14.2); RDW Standard Deviation 50.7 fL (35.1-46.3); Red Blood Cell Count 2.94 M/mm3 (4.30-5.90); White Blood Cell Count 12.38 K/mm3 (4.00-11.30)
[2024-12-02 07:06] LABS: Albumin, Blood 1.2 g/dL (3.4-5.0); Albumin/Globulin Ratio 0.2 (0.8-1.8); Bilirubin, Total 0.4 mg/dL (0.1-1.0); Bun/Creatinine Ratio 45.2 (12.0-20.0); Calcium, Blood 8.6 mg/dL (8.5-10.1); Creatinine, Blood 0.42 mg/dL (0.60-1.20); Magnesium, Blood 1.7 mg/dL (1.6-2.4); Phosphorus, Blood 3.1 mg/dL (2.5-4.9); Potassium, Blood 3.1 mmol/L (3.5-5.5); Total Protein, Blood 6.2 g/dL (6.4-8.2)
--- NOTE | 2024-12-02 07:09 | NUR ---
AAO TO SELF, UNCOOPERATIVE WITH CARES. APROACHED 3-4 TIMES FOR BG CHECK AND ASSESSMENT. NOTIFIED HOSPITALIST, HE CALLED , ALEXIS, AND SHE WANTS ABX GIVEN, UNDERSTANDS NEED FOR RESTRAINTS AND MEDICATIONS. 2ND IV PLACED R WRIST AND ABX GIVEN, CARES AND ASSESSMENT COMPLETED. MAX CONTACT ASSIST X 2 TO AMBULATE TO BR. NPO INCLUDING PO MEDICATIONS. PT DID REQUIRE 02 AFTER PRN MEDICATIONS GIVEN FOR SAT IN THE HIGH 70'S. RA THIS AM, SAT 95-98% RA.
[2024-12-02] MEDS ORDERED: Potassium Chloride 40 MEQ in NS 250 ML IV ONE (07:25)
[2024-12-02] MEDS ORDERED: Potassium Chloride 20 MEQ in NS 90 ML IV ONE (07:50)
--- NOTE | 2024-12-02 10:44 | NUR ---
"Spiritual Care | Nurse request Pt is awake in bed. Spouse and a young child are at bedside and welcome my visit. Begin to facilitate life review and build rapport. Spouse displayed evidence of needing pastoral support. During visit, RT arrived to do a breathing treatment. This waxing machine operator helper prayed and made arrangements with the spouse to return at a later time."
[2024-12-02] MEDS ORDERED: OLANZapine ODT 5 MG Tab MM PRN (11:05)
[2024-12-02] MEDS ORDERED: Atropine Sulfate 1% Opth Soln 2ML BTL SL PRN (11:05)
[2024-12-02] MEDS ORDERED: OxyCODONE HCL 1 MG/ML 5MLUDC PO PRN (11:10)
[2024-12-02] MEDS ORDERED: Azithromycin 250 MG Tab PO SCH (11:18)
--- NOTE | 2024-12-02 15:54 | NUR ---
MET WITH PATIENT AND ARIELA. DR. RUBALCAVA WAS AT BEDSIDE FOR THIS DISCUSSION. WE DISCUSSED WHAT HOSPICE WOULD PROVIDE SUPPORT. WE ANSWERED QUESTIONS ABOUT FREDIS'S CURRENT STATUS HIS ABILITY TO SWALLOW. WE DISCUSSED A PEG TUBE, WHICH IT IS UNDERSTOOD THAT FREDIS DOES NOT WANT. IS TEARFUL BUT AGREEABLE THAT THIS IS THE BEST DIRECTION OF CARE. CALLED PATIENTS ANAYA COLÓN AND SHE IS AGREEABLE WITH THIS PLAN. PATIENTS CODE STATUS WAS DISCUSSED AND CHANGED. POLST FILLED OUT AND SENT TO MEDICAL RECORDS AND REGISTRY.
--- NOTE | 2024-12-02 17:20 | NUR ---
PATIENT A/O X 1. PATIENT WAS PLACED ON COMFORT CARE AND DNR WAS COMPLETED WITH FAMILY. PATIENT WILL DISCHARGE HOME WITH HOSPICE TOMORROW WITH . PATIENT HAS BEEN EATING THICKENED FOOD AND DRINKING THICKED LIQUID. PATIENT HAS BEEN UP IN BED HOWEVER DOES GET UP WITHOUT CALLING FOR ASSISTANCE. BED ALARM IS IN PLACE AND PATIENT IS EASILY REDIRECTABLE. CALL LIGHT WITHIN REACH BED ALARM IN PLACE.
[2024-12-02] MEDS ORDERED: Cefpodoxime Proxetil 200 MG Tab PO SCH (21:00)
--- NOTE | 2024-12-03 05:16 | NUR ---
ORIENTED TO SELF. COOPERATIVE WITH CARES. ABLE TO SWALLOW THICKENED JUICE AND PILLS CRUSHED IN PUDDING. MALE PERWICK IN PLACE. NO ACUTE NEEDS OVERNIGHT. PLAN IS DC HOME ON HOSPICE.
--- NOTE | 2024-12-03 06:35 | NUR ---
PT RESP SHALLOW AND UNEVEN @ 8-10, WILL OPEN EYES TO GENTLE RUB OF ARM OR CHEST. DID NOT RESPOND TO QUESTIONS. EXTRMEMTIES WARM. LEFT MESSAGE ON HOME PHONE AND , ALEXIS, PHONE TO CALL [facility].
--- NOTE | 2024-12-03 09:03 | NUR ---
PT IS COMFORT CARE, EMAR HAS NOT SWITCHED TO COMFORT CARE MEDS YET. ATTEMPTED TO GIVE ONE PILL TO PT WITH PUDDING, UNABLE TO SWALLOW AND FOLLOW DIRECTIONS, DID NOT GIVE MORNING MEDS DUE TO THIS. DOCUMENTED SUCH IN EMAR.
--- NOTE | 2024-12-03 16:44 | NUR ---
EVALUATED PATIENT TODAY. HE APPEARS COMFORTABLE. CAME IN PROVIDED THERAPUTIC CONVERSATION. CARE COORDINATION DISCUSSED DISCHARGE PLAN
--- NOTE | 2024-12-03 16:52 | NUR ---
SHIFT SUMMARY PT AOX1 IN THE AM, THEN WHEN AFTERNOON CAME A0X3/4. COOPERATIVE, ABLE TO MAKE NEEDS KNOWN. ATTEMPTED TO GIVE AM MEDS, PT WAS UNABLE TO FOLLOW SIMPLE COMMANDS, COULD NOT SWALLOW PILLS, THIS RN USED CLINICAL JUDGEMENT AND DID NOT ADMINISTER ANY AM MEDICATION. IN AFTERNOON, PT WAS MORE ALERT AND HAVING CONVERSATION, WAS ABLE TO SWALLOW MEDICATION WITH PUDDING. PT SPENT ENTIRE SHIFT IN BED, PURE WICK IN PLACE. ON COMFORT CARE. COMFORT CARE MEDS WILL BE ESTABLISHED WHEN PT GOES HOME ON HOSPICE. TRANSPORT SHOULD ARRIVE 12/04/24 AT NOON. BED IN LOWEST POSITION, CALL LIGHT WITHIN REACH.
--- NOTE | 2024-12-04 04:10 | NUR ---
ORIENTED TO SELF AND PLACE. COOPERATIVE WITH CARES. RA. MALE PERWICK IN PLACE. MEDS CRUSHED AND GIVEN IN PUDDING, TOLERATED WELL. PALLATIVE CARE AND HOME ON HOSICE, 12/04/24 @ NOON.
[2024-12-04] MEDS ORDERED: ATROPINE SULFATE2 M1 SL (09:54)
[2024-12-04] MEDS ORDERED: AZIT250 PO (09:55)
[2024-12-04] MEDS ORDERED: CEFP200 PO (09:56)
--- NOTE | 2024-12-04 10:39 | NUR ---
RN NOTE MR MITCHELL HAS TRANSPORT FOR DISCHARGE TO HOME WITH HOSPICE ARRANGED AT NOON. HIS WAS HERE EARLIER TODAY BUT HAS LEFT. MR MITCHELL HAS MOSTLY BEEN SLEEPING TODAY, HEAVY REGULAR RESPIRATIONS. HE JUST NOW HAD HIS EYES OPEN, WAS ABLE TO FOLLOW SIMPLE INSTRUCTIONS AND SAID HE DOES NOT HAVE PAIN, JUST FEELS TIRED. ATTEMPT MADE TO CALL PTS TO GIVE DISCHARGE INSTRUCTIONS. DISCRETE MESSAGE LEFT ON ANSWERING MACHINE.
--- NOTE | 2024-12-04 12:06 | NUR ---
DISCHARGED WITH NON EMERGENCY TRANSPORT TO HOME. PHONE CALL TO TO [facility], NO ANSWER AT THIS TIME
== END 2024-12-04 12:08 | disposition hospice, home (50) | DRG 871 ==
LOC: ER 18:12 → ERHOLD 22:35 → MEDS 22:35
PROVIDERS: Emergency Medicine; Hospitalist; Internal Medicine; ADMIT Internal Medicine
PROC: 0T9B70Z Drainage of Bladder with Drainage Device, Via Natural or Artificial Opening (ICD-10-PCS; 2024-11-29)
PROC: 3E03329 Introduction of Other Anti-infective into Peripheral Vein, Percutaneous Approach (ICD-10-PCS; principal; 2024-11-30)
DX: A41.51 Sepsis due to Escherichia coli [E. coli] (principal); G92.8 Other toxic encephalopathy; J18.9 Pneumonia, unspecified organism; J96.01 Acute respiratory failure with hypoxia; J69.0 Pneumonitis due to inhalation of food and vomit; J44.0 Chronic obstructive pulmonary disease with (acute) lower respiratory infection; N39.0 Urinary tract infection, site not specified; R64 Cachexia; F03.B4 Unspecified dementia, moderate, with anxiety; F03.B3 Unspecified dementia, moderate, with mood disturbance; F03.B11 Unspecified dementia, moderate, with agitation; Z78.1 Physical restraint status; Z66 Do not resuscitate; Z51.5 Encounter for palliative care; Z28.21 Immunization not carried out because of patient refusal; R62.7 Adult failure to thrive; R65.20 Severe sepsis without septic shock; Z68.21 Body mass index [BMI] 21.0-21.9, adult; G47.33 Obstructive sleep apnea (adult) (pediatric); G89.4 Chronic pain syndrome; E11.40 Type 2 diabetes mellitus with diabetic neuropathy, unspecified; N40.1 Benign prostatic hyperplasia with lower urinary tract symptoms; R33.8 Other retention of urine; I10 Essential (primary) hypertension; R13.10 Dysphagia, unspecified; D75.1 Secondary polycythemia; M19.90 Unspecified osteoarthritis, unspecified site; E78.00 Pure hypercholesterolemia, unspecified; F43.10 Post-traumatic stress disorder, unspecified; F90.9 Attention-deficit hyperactivity disorder, unspecified type; B18.2 Chronic viral hepatitis C; E87.6 Hypokalemia; E83.39 Other disorders of phosphorus metabolism; E83.42 Hypomagnesemia; I48.91 Unspecified atrial fibrillation; F17.200 Nicotine dependence, unspecified, uncomplicated; Z88.5 Allergy status to narcotic agent; Z79.82 Long term (current) use of aspirin; Z79.899 Other long term (current) drug therapy; Z86.0100 Personal history of colon polyps, unspecified; Z86.711 Personal history of pulmonary embolism
CPT/HCPCS: 36415; 51702; 70450; 71045; 80048; 80053; 81001; 82248; 82947; 83036; 83605; 83735; 84100; 85025; 85027; 85610; 85730; 87040; 87077; 87086; 87186; 87428-QW; 92610; 93005; 93010; 94640; 94664; 94760; 96361; 96365; 97161; 97530; 99285-25; A9270; C1751; J0456; J0696; J1630; J1650; J1815; J2060; J2919; J3475; J3480; J7030; J7050; J7060; J7120; J7512